=== PATIENT | male | born 1960 | race Caucasian/White ===

== ENCOUNTER 2018-10-01 11:11 | Outpatient (CLI) | payer OTHER, MEDICARE ==
[~2018-10-01 11:11] MED LIST: ALBU8.5H2; DIPH25TA62 PO; EPIN0.3P4 IM; FORM12CA; IBUP-1574; OMEP-84; OXYC40TA39; PRED20TA PO; PRED50TA PO; WEL75T PO
== END 2018-10-01 23:59 | disposition home or self-care (01) ==
LOC: 64 CT 11:11
PROVIDERS: ATTEND Family Medicine
DX: M47.812 Spondylosis without myelopathy or radiculopathy, cervical region (principal); M48.02 Spinal stenosis, cervical region; E04.2 Nontoxic multinodular goiter; R20.2 Paresthesia of skin; J44.9 Chronic obstructive pulmonary disease, unspecified; Z87.891 Personal history of nicotine dependence
CPT/HCPCS: 72052; 72125; 72141

== ENCOUNTER 2019-01-09 08:33 | Outpatient (CLI) | payer OTHER, MEDICARE ==
[2019-01-09 10:01] LABS: CLARITY,URINE CLOUDY (Clear); COLOR,URINE YELLOW (Yellow); GLUCOSE, URINE NEGATIVE (Neg); KETONES,URINE 15 mg/dl (Neg); LEUKOCYTE ESTERASE ,URINE NEGATIVE (Neg); NITRITES, URINE NEGATIVE (Neg); OCCULT BLOOD,URINE NEGATIVE (Neg); PH,URINE 5.5 (4.8-8.0); PROTEIN,URINE TRACE mg/dl (Neg)
[2019-01-09 10:02] LABS: BASOPHILS # (AUTO) 0.1 X10'3 (0-0.2); BASOPHILS % (AUTO) 1.1 % (0-1); EOSINOPHILS # (AUTO) 0.1 X10'3 (0-0.9); EOSINOPHILS % (AUTO) 1.9 % (0-6); HEMATOCRIT 44.4 % (42.0-52.0); HEMOGLOBIN 15.3 g/dl (14.0-17.9); LYMPHOCYTES # (AUTO) 1.5 X10'3 (1.1-4.8); LYMPHOCYTES % (AUTO) 20.4 % (21-51); MEAN CORPUSCULAR HEMOGLOBIN 31.9 PG (27.0-31.0); MEAN CORPUSCULAR HGB CONC 34.6 g/dL (33.0-36.5); MEAN CORPUSCULAR VOLUME 92.3 FL (78-98); MEAN PLATELET VOLUME 7.7 FL (7.4-10.4); MONOCYTES # (AUTO) 0.8 X10'3 (0-0.9); MONOCYTES % (AUTO) 11.4 % (2-12); NEUTROPHILS # (AUTO) 4.7 X10'3 (1.8-7.7); NEUTROPHILS % (AUTO) 65.2 % (42-75); PLATELET COUNT 356 X10'3 (140-440); RED CELL DISTRIBUTION WIDTH 13.5 % (11.5-14.5); WHITE BLOOD COUNT 7.2 X10'3 (4.5-11.0)
[2019-01-09 10:05] LABS: UA COLLECTION TYPE VOIDED
[2019-01-09 10:12] LABS: HYALINE CASTS >30 /LPF (NEGATIVE)
[2019-01-09 10:13] LABS: BACTERIA,URINE 1+ /HPF (Neg); MUCUS STRANDS MODERATE /LPF (Neg); SQUAMOUS EPITHELIAL CELL,UR MANY /LPF (FEW); TRANSITIONAL EPI CELLS,URINE FEW /HPF
[2019-01-09 10:14] LABS: RBC,URINE 0-2 /HPF (0-2); WBC,URINE 0-4 /HPF (0-4)
[2019-01-09 10:22] LABS: ALANINE AMINOTRANSFERASE 74 U/L (12-78); ALBUMIN 4.4 G/DL (3.4-5.0); ALBUMIN/GLOBULIN RATIO 1.2 (1.1-1.5); ALKALINE PHOSPHATASE 69 IU/L (46-116); ANION GAP 8 (8-16); ASPARTATE AMINO TRANSFERASE 47 U/L (10-37); BILIRUBIN,TOTAL 0.7 MG/DL (0.1-1.0); BLOOD UREA NITROGEN 13 MG/DL (7-18); BUN/CREATININE RATIO 11.2 (5.4-32.0); CALCIUM 9.4 MG/DL (8.5-10.1); CHLORIDE 100 MMOL/L (99-107); CHOL/HDL RATIO 3.9 (0.00-4.99); CHOLESTEROL 251 MG/DL (0-200); CREATININE 1.16 MG/DL (0.60-1.10); GLUCOSE 89 MG/DL (70-104); HDL CHOLESTEROL 64 MG/DL (35-60); LDL CHOLESTEROL 155 MG/DL (50-100); POTASSIUM 4.5 MMOL/L (3.5-5.1); SODIUM 136 MMOL/L (135-145); TOTAL CARBON DIOXIDE 27.6 MMOL/L (24-32); TOTAL PROTEIN 8.2 G/DL (6.4-8.2); TRIGLYCERIDES 128 MG/DL (20-135); eGFR 65 ML/MIN
== END 2019-01-09 23:59 | disposition home or self-care (01) ==
LOC: LAB 08:33
DX: Z00.00 Encounter for general adult medical examination without abnormal findings (principal); M54.2 Cervicalgia; J44.9 Chronic obstructive pulmonary disease, unspecified; Z87.891 Personal history of nicotine dependence
CPT/HCPCS: 36415; 80053; 80061; 81001; 84402; 84403; 84439; 84443; 85025

== ENCOUNTER 2019-03-17 07:33 | Day surgery (SDC) | payer OTHER, MEDICARE ==
[~2019-03-17] VITALS: Ht 188 cm; Wt 106.8 kg
[2019-03-17 07:42] VITALS: BP 178/106
[2019-03-17] MEDS ORDERED: BUPR75TA12 PO (07:47)
[2019-03-17] MEDS ORDERED: OMEP20TA5 PO (07:52)
[2019-03-17] MEDS ORDERED: IBUP-1986 PO (07:52)
[2019-03-17] MEDS ORDERED: fentaNYL/PF 50MCG/1 ML 2ML syringe ONE (08:34)
[2019-03-17] MEDS ORDERED: MIDAZolam 5mg/5ml vial ONE (08:35)
[2019-03-17 09:46] VITALS: BP 156/77
[2019-03-17 09:56] VITALS: BP 148/89
[2019-03-17 10:06] VITALS: BP 147/66
[2019-03-17 10:16] VITALS: BP 153/86
== END 2019-03-17 10:27 | disposition home or self-care (01) ==
LOC: GI LAB 07:33
PROVIDERS: ATTEND Internal Medicine Gastroenterology
DX: Z12.11 Encounter for screening for malignant neoplasm of colon (principal); K63.5 Polyp of colon; K64.8 Other hemorrhoids
CPT/HCPCS: 45385; 99152; 99153; C1773; J2250; J3010; J7040; A4620

== ENCOUNTER 2019-05-20 08:42 | Emergency (ER) | payer OTHER, MEDICARE ==
[~2019-05-20] VITALS: Ht 188 cm; Wt 109.1 kg
[~2019-05-20 08:42] MED LIST changes: -ALBU8.5H2; +BUPR75TA12 PO; -DIPH25TA62 PO; -EPIN0.3P4 IM; -FORM12CA; +IBUP-1986 PO; +OMEP20TA5 PO; -OXYC40TA39; -PRED20TA PO; -PRED50TA PO
[2019-05-20] MEDS ORDERED: ondansetron/PF 4mg/2ml inj IV ONE (09:10)
[2019-05-20] MEDS ORDERED: morphine 4 MG/ML inj SYRINge IV ONE (09:10)
[2019-05-20 09:32] LABS: BASOPHILS # (AUTO) 0.1 X10'3 (0-0.2); BASOPHILS % (AUTO) 0.7 % (0-1); EOSINOPHILS # (AUTO) 0.4 X10'3 (0-0.9); EOSINOPHILS % (AUTO) 5.8 % (0-6); HEMATOCRIT 40.2 % (42.0-52.0); HEMOGLOBIN 13.7 g/dl (14.0-17.9); LYMPHOCYTES # (AUTO) 1.4 X10'3 (1.1-4.8); LYMPHOCYTES % (AUTO) 20.2 % (21-51); MEAN CORPUSCULAR HEMOGLOBIN 32.1 PG (27.0-31.0); MEAN CORPUSCULAR HGB CONC 34.1 g/dL (33.0-36.5); MEAN CORPUSCULAR VOLUME 94.1 FL (78-98); MEAN PLATELET VOLUME 7.8 FL (7.4-10.4); MONOCYTES # (AUTO) 0.9 X10'3 (0-0.9); MONOCYTES % (AUTO) 12.5 % (2-12); NEUTROPHILS # (AUTO) 4.2 X10'3 (1.8-7.7); NEUTROPHILS % (AUTO) 60.8 % (42-75); PLATELET COUNT 299 X10'3 (140-440); RED BLOOD COUNT 4.27 X10'6 (4.70-6.10); RED CELL DISTRIBUTION WIDTH 13.5 % (11.5-14.5)
[2019-05-20 09:46] LABS: ALANINE AMINOTRANSFERASE 66 U/L (12-78); ALBUMIN/GLOBULIN RATIO 1.1 (1.1-1.5); ALKALINE PHOSPHATASE 65 IU/L (46-116); ANION GAP 12 (8-16); ASPARTATE AMINO TRANSFERASE 37 U/L (10-37); BILIRUBIN,TOTAL 0.3 MG/DL (0.1-1.0); BLOOD UREA NITROGEN 14 MG/DL (7-18); BUN/CREATININE RATIO 14.1 (5.4-32.0); CHLORIDE 101 MMOL/L (99-107); CREATININE 0.99 MG/DL (0.60-1.10); GLUCOSE 114 MG/DL (70-104); LIPASE 143 U/L (73-393); POTASSIUM 4.4 MMOL/L (3.5-5.1); SODIUM 140 MMOL/L (135-145); TOTAL CARBON DIOXIDE 27.5 MMOL/L (24-32); TOTAL PROTEIN 7.6 G/DL (6.4-8.2); eGFR 78 ML/MIN
[2019-05-20] MEDS ORDERED: ketorolac trometh. 30mg/ml inj. IV ONE (10:40)
[2019-05-20 10:47] LABS: CLARITY,URINE CLEAR (Clear); COLOR,URINE YELLOW (Yellow); GLUCOSE, URINE NEGATIVE (Neg); KETONES,URINE NEGATIVE (Neg); LEUKOCYTE ESTERASE ,URINE NEGATIVE (Neg); NITRITES, URINE NEGATIVE (Neg); OCCULT BLOOD,URINE NEGATIVE (Neg); PROTEIN,URINE NEGATIVE (Neg); UA COLLECTION TYPE CLN CATCH MIDSTREAM; UROBILINOGEN,URINE 0.2 E.U/dL (0.2-1.0)
[2019-05-20] MEDS ORDERED: diazepam inj 5 MG/ML inj. IV ONE (11:30)
[2019-05-20] MEDS ORDERED: IBUP-1984 PO (11:55)
[2019-05-20] MEDS ORDERED: CYCL-1 PO (11:55)
[2019-05-20] MEDS ORDERED: CARI250T PO (12:31)
[2019-05-20 12:38] VITALS: BP 144/79
== END 2019-05-20 12:39 | disposition home or self-care (01) ==
LOC: ER 08:42
DX: R10.9 Unspecified abdominal pain (principal); I10 Essential (primary) hypertension; R14.0 Abdominal distension (gaseous); J44.9 Chronic obstructive pulmonary disease, unspecified; Z98.890 Other specified postprocedural states; Z79.899 Other long term (current) drug therapy
CPT/HCPCS: 36415; 71046; 74176; 80053; 81003; 83690; 84484; 85025; 85610; 93005; 96374; 96375; 99284; J1885; J2270; J2405; J3360

== ENCOUNTER 2019-06-03 10:31 | Outpatient (CLI) | payer OTHER, MEDICARE ==
[~2019-06-03 10:31] MED LIST changes: +CARI250T PO; +IBUP-1984 PO
== END 2019-06-03 23:59 | disposition home or self-care (01) ==
LOC: 64 CT 10:31
PROVIDERS: ATTEND Family Medicine
DX: R91.8 Other nonspecific abnormal finding of lung field (principal); K76.0 Fatty (change of) liver, not elsewhere classified; J44.9 Chronic obstructive pulmonary disease, unspecified; I10 Essential (primary) hypertension; Z87.891 Personal history of nicotine dependence
CPT/HCPCS: 71250

== ENCOUNTER 2019-08-29 08:01 | Outpatient (CLI) | payer MEDICARE, OTHER ==
[~2019-08-29 08:01] MED LIST changes: -CARI250T PO; -IBUP-1984 PO
== END 2019-08-29 23:59 | disposition home or self-care (01) ==
LOC: RAD 08:01
PROVIDERS: ATTEND Family Medicine
DX: J34.89 Other specified disorders of nose and nasal sinuses (principal)
CPT/HCPCS: 78306; A9503

== ENCOUNTER 2021-05-11 08:49 | Outpatient (CLI) | payer BC, OTHER ==
[2021-05-11 09:12] LABS: BASOPHILS % (AUTO) 0.7 % (0-1); EOSINOPHILS # (AUTO) 0.2 X10'3 (0-0.9); EOSINOPHILS % (AUTO) 3.1 % (0-6); HEMATOCRIT 43.6 % (42.0-52.0); HEMOGLOBIN 14.7 g/dl (14.0-17.9); LYMPHOCYTES # (AUTO) 1.3 X10'3 (1.1-4.8); LYMPHOCYTES % (AUTO) 20.3 % (21-51); MEAN CORPUSCULAR HEMOGLOBIN 32.1 PG (27.0-31.0); MEAN CORPUSCULAR HGB CONC 33.7 g/dL (33.0-36.5); MEAN CORPUSCULAR VOLUME 95.1 FL (78-98); MONOCYTES # (AUTO) 0.9 X10'3 (0-0.9); MONOCYTES % (AUTO) 13.8 % (2-12); NEUTROPHILS # (AUTO) 3.9 X10'3 (1.8-7.7); NEUTROPHILS % (AUTO) 62.1 % (42-75); PLATELET COUNT 335 X10'3 (140-440); RED BLOOD COUNT 4.58 X10'6 (4.70-6.10); RED CELL DISTRIBUTION WIDTH 13.3 % (11.5-14.5); WHITE BLOOD COUNT 6.2 X10'3 (4.5-11.0)
[2021-05-11 09:31] LABS: COLOR,URINE YELLOW (Yellow); UA COLLECTION TYPE CLN CATCH MIDSTREAM
[2021-05-11 09:32] LABS: CLARITY,URINE SLIGHTLY CLOUDY (Clear); GLUCOSE, URINE NEGATIVE (Neg); KETONES,URINE NEGATIVE (Neg); LEUKOCYTE ESTERASE ,URINE NEGATIVE (Neg); NITRITES, URINE NEGATIVE (Neg); OCCULT BLOOD,URINE NEGATIVE (Neg); PROTEIN,URINE NEGATIVE (Neg); UROBILINOGEN,URINE 0.2 E.U/dL (0.2-1.0)
[2021-05-11 09:33] LABS: MUCUS STRANDS FEW /LPF (Neg)
[2021-05-11 09:34] LABS: BACTERIA,URINE NONE SEEN /HPF (Neg); SQUAMOUS EPITHELIAL CELL,UR FEW /LPF (FEW); WBC,URINE 0-4 /HPF (0-4)
[2021-05-11 09:43] LABS: ALANINE AMINOTRANSFERASE 77 U/L (12-78); ALBUMIN/GLOBULIN RATIO 1.1 (1.1-1.5); ALKALINE PHOSPHATASE 62 IU/L (46-116); ANION GAP 10 (8-16); ASPARTATE AMINO TRANSFERASE 38 U/L (10-37); BILIRUBIN,TOTAL 0.7 MG/DL (0.1-1.0); BLOOD UREA NITROGEN 11 MG/DL (7-18); BUN/CREATININE RATIO 10.8 (5.4-32.0); CALCIUM 9.1 MG/DL (8.5-10.1); CHLORIDE 103 MMOL/L (99-107); CHOL/HDL RATIO 3.9 (0.00-4.99); CHOLESTEROL 264 MG/DL (0-200); CREATININE 1.02 MG/DL (0.60-1.10); GLUCOSE 109 MG/DL (70-104); HDL CHOLESTEROL 67 MG/DL (35-60); LDL CHOLESTEROL 154 MG/DL (50-100); POTASSIUM 4.4 MMOL/L (3.5-5.1); SODIUM 141 MMOL/L (135-145); TOTAL CARBON DIOXIDE 28.3 MMOL/L (24-32); TOTAL PROTEIN 7.6 G/DL (6.4-8.2); TRIGLYCERIDES 108 MG/DL (20-135); eGFR 75 ML/MIN
== END 2021-05-11 23:59 | disposition home or self-care (01) ==
LOC: LAB 08:49
PROVIDERS: ATTEND Family Medicine
DX: Z00.01 Encounter for general adult medical examination with abnormal findings (principal)
CPT/HCPCS: 36415; 80053; 80061; 81001; 84439; 84443; 85025

== ENCOUNTER 2021-11-11 14:02 | Outpatient (CLI) | payer BC ==
[~2021-11-11 14:02] MED LIST changes: +BUPR-297 PO; -BUPR75TA12 PO; +CARV-50 PO
[2021-11-11 15:08] LABS: CHOL/HDL RATIO 3.6 (0.00-4.99); CHOLESTEROL 255 MG/DL (0-200); HDL CHOLESTEROL 71 MG/DL (35-60); LDL CHOLESTEROL 155 MG/DL (50-100); TRIGLYCERIDES 73 MG/DL (20-135)
== END 2021-11-11 23:59 | disposition home or self-care (01) ==
LOC: LAB 14:02
PROVIDERS: ATTEND Family Medicine
DX: I10 Essential (primary) hypertension (principal); E78.5 Hyperlipidemia, unspecified; R73.03 Prediabetes; M54.9 Dorsalgia, unspecified
CPT/HCPCS: 36415; 80061; 83036

== ENCOUNTER 2022-04-19 09:06 | Outpatient (CLI) | payer BC ==
[~2022-04-19 09:06] MED LIST changes: +OMEP20TA43 PO; -OMEP20TA5 PO
[2022-04-19 10:04] LABS: CHOL/HDL RATIO 2.9 (0.00-4.99); CHOLESTEROL 203 MG/DL (0-200); HDL CHOLESTEROL 71 MG/DL (35-60); LDL CHOLESTEROL 99 MG/DL (50-100); TRIGLYCERIDES 111 MG/DL (20-135)
== END 2022-04-19 23:59 | disposition home or self-care (01) ==
LOC: LAB 09:06
PROVIDERS: ATTEND Family Medicine
DX: E78.5 Hyperlipidemia, unspecified (principal)
CPT/HCPCS: 36415; 80061; 84443

== ENCOUNTER 2022-06-28 05:47 | Observation (INO) | payer BC ==
[2022-06-21 14:56] LABS: BASOPHILS # (AUTO) 0.1 X10'3 (0-0.2); BASOPHILS % (AUTO) 0.6 % (0-1); EOSINOPHILS # (AUTO) 0.3 X10'3 (0-0.9); EOSINOPHILS % (AUTO) 2.9 % (0-6); LYMPHOCYTES # (AUTO) 1.6 X10'3 (1.1-4.8); MEAN CORPUSCULAR HEMOGLOBIN 31.6 PG (27.0-31.0); MEAN CORPUSCULAR HGB CONC 33.7 g/dL (33.0-36.5); MEAN CORPUSCULAR VOLUME 93.7 FL (78-98); MEAN PLATELET VOLUME 7.5 FL (7.4-10.4); MONOCYTES # (AUTO) 1.1 X10'3 (0-0.9); MONOCYTES % (AUTO) 11.2 % (2-12); NEUTROPHILS # (AUTO) 6.7 X10'3 (1.8-7.7); NEUTROPHILS % (AUTO) 69.3 % (42-75); PRE OP HEMATOCRIT 39.9 % (42.0-52.0); PRE OP HEMOGLOBIN 13.4 g/dL (14.0-17.9); PRE OP PLATELET COUNT 324 X10'3 (140-440); RED BLOOD COUNT 4.26 X10'6 (4.70-6.10)
[2022-06-21 15:10] LABS: ALBUMIN/GLOBULIN RATIO 1.1 (1.1-1.5); ALKALINE PHOSPHATASE 61 IU/L (46-116); BLOOD UREA NITROGEN 20 MG/DL (7-18); BUN/CREATININE RATIO 15.2 (5.4-32.0); CALCIUM 9.4 MG/DL (8.5-10.1); CHLORIDE 102 MMOL/L (99-107); CREATININE 1.32 MG/DL (0.60-1.10); PRE OP ALT 42 U/L (30-65); PRE OP ANION GAP 9 (8-16); PRE OP AST 28 U/L (10-37); PRE OP BILIRUB, TOTAL 0.4 MG/DL (0.0-1.0); PRE OP GLUCOSE 113 MG/DL (70-104); PRE OP POTASSIUM 4.1 MMOL/L (3.4-5.1); PRE OP SODIUM 138 MMOL/L (135-145); TOTAL CARBON DIOXIDE 26.6 MMOL/L (24-32); TOTAL PROTEIN 7.6 G/DL (6.4-8.2); eGFR 55 ML/MIN
[~2022-06-28] VITALS: Ht 188 cm; Wt 108.9 kg
[2022-06-28] VITALS (15 sets, daily range): BP systolic 134–168; BP diastolic 72–104
[~2022-06-28 05:47] MED LIST changes: +BUPR-230 PO; -BUPR-297 PO; +CELE-85 PO; +DOCUMENT DATE & TIME OF BETA-BLOCKER PO ONE; -IBUP-1574; -IBUP-1986 PO; +LOSA100T57 PO; -OMEP-84; +ROSU10TA28 PO; -WEL75T PO; +ceFAZolin inj. 2,000 MG in dextrose 5%-water 100 ML IV ONE; +famotidine 20mg tablet PO ONE; +ringers solution, lacted 1,000 ML IV SCH; +tranexamic acid inj. 1,000 MG in normal saline IV soln 100ML IV ONE; +vancomycin 1,500 MG in NS 300ml IV soln IV ONE
[2022-06-28] MEDS ORDERED: epiNEPHrine 1 mg/ml inj ONE (06:50)
[2022-06-28] MEDS ORDERED: ketorolac trometh. 30mg/ml inj. ONE (06:50)
[2022-06-28] MEDS ORDERED: ROPIVAcaine 0.5% (5mg/ml) 30ml vial ONE ×2 (06:51→07:15)
[2022-06-28] MEDS ORDERED: morphine 10mg/ml inj. ONE (06:51)
[2022-06-28] MEDS ORDERED: vancomycin 1,000mg inj ONE (07:18)
[2022-06-28] MEDS ORDERED: FENTANYL CITRATE/PF 50 MCG/1 ML VIAL ONE ×2 (07:32→08:08)
[2022-06-28] MEDS ORDERED: MIDAZolam 1mg/ml 10ml vial ONE (07:32)
[2022-06-28] MEDS ORDERED: propofol inj 20 ML IV ONE ×2 (08:08→08:09)
[2022-06-28] MEDS ORDERED: morphine 4 MG/ML inj SYRINge IV PRN (09:00)
[2022-06-28] MEDS ORDERED: ringers solution, lacted 1,000 ML IV SCH (09:00)
[2022-06-28] MEDS ORDERED: ROPIVAcaine 0.2% (10 MG/5 ML) BOLUS INJECTION ADDCANAL PRN (09:00)
[2022-06-28] MEDS ORDERED: ondansetron/PF 4mg/2ml inj IV PRN ×2 (09:00→10:45)
[2022-06-28] MEDS ORDERED: meperidine/PF 25mg/ml syringe IV PRN ×3 (09:00)
[2022-06-28] MEDS ORDERED: proCHLORperazine 10 MG/2 ml inj IV PRN (09:00)
[2022-06-28] MEDS ORDERED: morphine 2 MG/ML inj. syringe IV PRN (09:00)
[2022-06-28] MEDS ORDERED: ROPIVAcaine 0.2%/PF PUMP/bolus 545 ML ADDCANAL SCH (09:29)
[2022-06-28] MEDS ORDERED: MIDAZolam 1 MG/ML 5ML VIAL ONE (09:30)
[2022-06-28] MEDS ORDERED: HYDROmorphone inj. 0.5 MG/0.5 ML DISP.SYRIN IV PRN (10:45)
[2022-06-28] MEDS ORDERED: magnesium hydroxide 30ml (MOM) UD suspension PO PRN (10:45)
[2022-06-28] MEDS ORDERED: HYDROmorphone 1 mg/ml syringe IV PRN (10:45)
[2022-06-28] MEDS ORDERED: acetaminophen 325mg tablet PO PRN (10:45)
[2022-06-28] MEDS ORDERED: bisacodyl 10mg suppository rectal RC PRN (10:45)
[2022-06-28] MEDS ORDERED: oxyCODONE IR 5mg (immed. release) tablet PO PRN ×2 (10:45)
[2022-06-28] MEDS ORDERED: diphenhydrAMINE 25mg capsule PO PRN ×2 (10:45)
[2022-06-28] MEDS ORDERED: naloxone 0.4 mg/ml inj IV PRN (10:45)
--- NOTE | 2022-06-28 10:50 | NUR ---
Received from OR via BED, accompanied by Anesthesiologist and report given by Anesthesiologist. PATIENT WAKING UP, NO S/S OF PAIN, V/S WNL, SCD ON, 20G TO LUE, drsg to RIGHT KNEE CDI with IMMOBILIZER CDI, TO BE SET ON Q BALL AT 8ML/HR WHEN AT IS READY.
[2022-06-28] MEDS ORDERED: ROPIVAcaine 0.2%/PF PUMP 545 ML ADDCANAL SCH (11:30)
[2022-06-28] MEDS ORDERED: gabapentin 300mg capsule PO SCH (13:00)
--- NOTE | 2022-06-28 13:02 | NUR ---
PT HERE TO WORK WITH PATIENT
--- NOTE | 2022-06-28 13:30 | NUR ---
PATIENT A&OX4, PAIN / , V/S WNL, SCD OFF, 20G TO LUE D/C, drsg to RIGHT KNEE CDI with IMMOBILIZER CDI, T ON Q BALL AT 8ML/HR. . I HAVE REVIEWED D/C INSTRUCTIONS AND ON Q MANAGMENT WITH PATIENT and they have verbalized understanding AND PATIENT HAS PASSED PT TEST , CSM INTACT, patient d/c home with all belongings and family gave transport home.
[2022-06-28] MEDS ORDERED: acetaminophen 325mg tablet PO SCH (14:00)
[2022-06-28] MEDS ORDERED: tranexamic acid inj. 1,100 MG in normal saline 100ml IV soln 89 ML IV ONE (14:00)
[2022-06-28] MEDS ORDERED: sennosides 8.6mg tablet PO SCH (21:00)
[2022-06-29] MEDS ORDERED: enoxaparin 40mg/0.4ml syringe SQ SCH (08:00)
[2022-06-29] MEDS ORDERED: cephalexin 500mg capsule PO SCH (16:00)
[2022-06-29] MEDS ORDERED: celeCOXIB 100mg capsule PO SCH (20:00)
[2022-06-30] MEDS ORDERED: acetaminophen 325mg tablet PO PRN (10:45)
== END 2022-06-28 13:45 | disposition home or self-care (01) ==
LOC: INTOOBSV 05:47 → PAS IN 05:47 → EDSTATUS 07:30
PROVIDERS: ADMIT Orthopaedic Surgery; ATTEND Orthopaedic Surgery
DX: M17.11 Unilateral primary osteoarthritis, right knee (principal); M10.9 Gout, unspecified; I10 Essential (primary) hypertension; E78.00 Pure hypercholesterolemia, unspecified; J45.909 Unspecified asthma, uncomplicated; K21.9 Gastro-esophageal reflux disease without esophagitis; Z79.899 Other long term (current) drug therapy
CPT/HCPCS: 27447; 36415; 73560; 80053; 82948; 85025; 87081; 93005; 96365; 97110; 97116; 97161; C1776; G0378; J0171; J0690; J1885; J2250; J2274; J2704; J2795; J3010; J3370; J3490; J7040; J7060; J7120; A4215; A6253; A6258; A6446; A6449; A7000; C9250

== ENCOUNTER 2023-01-02 09:41 | Outpatient (CLI) | payer BC ==
[~2023-01-02 09:41] MED LIST changes: -DOCUMENT DATE & TIME OF BETA-BLOCKER PO ONE; -LOSA100T57 PO; +LOSA100T58 PO; -ceFAZolin inj. 2,000 MG in dextrose 5%-water 100 ML IV ONE; -famotidine 20mg tablet PO ONE; -ringers solution, lacted 1,000 ML IV SCH; -tranexamic acid inj. 1,000 MG in normal saline IV soln 100ML IV ONE; -vancomycin 1,500 MG in NS 300ml IV soln IV ONE
[2023-01-02 11:55] LABS: BASOPHILS # (AUTO) 0.1 X10'3 (0-0.2); BASOPHILS % (AUTO) 0.9 % (0-1); EOSINOPHILS # (AUTO) 0.8 X10'3 (0-0.9); EOSINOPHILS % (AUTO) 9.2 % (0-6); HEMATOCRIT 37.3 % (42.0-52.0); HEMOGLOBIN 12.6 g/dl (14.0-17.9); LYMPHOCYTES % (AUTO) 11.1 % (21-51); MEAN CORPUSCULAR HEMOGLOBIN 30.8 PG (27.0-31.0); MEAN CORPUSCULAR HGB CONC 33.8 g/dL (33.0-36.5); MEAN CORPUSCULAR VOLUME 91.1 FL (78-98); MEAN PLATELET VOLUME 6.7 FL (7.4-10.4); MONOCYTES % (AUTO) 10.3 % (2-12); NEUTROPHILS # (AUTO) 6.3 X10'3 (1.8-7.7); NEUTROPHILS % (AUTO) 68.5 % (42-75); PLATELET COUNT 456 X10'3 (140-440); RED CELL DISTRIBUTION WIDTH 14.3 % (11.5-14.5); WHITE BLOOD COUNT 9.2 X10'3 (4.5-11.0)
[2023-01-02 12:09] LABS: ALANINE AMINOTRANSFERASE 23 U/L (12-78); ALBUMIN 3.6 G/DL (3.4-5.0); ALBUMIN/GLOBULIN RATIO 0.9 (1.1-1.5); ALKALINE PHOSPHATASE 83 IU/L (46-116); ANION GAP 10 (8-16); ASPARTATE AMINO TRANSFERASE 23 U/L (10-37); BILIRUBIN,TOTAL 0.6 MG/DL (0.1-1.0); BLOOD UREA NITROGEN 14 MG/DL (7-18); BUN/CREATININE RATIO 14.1 (10.0-20.0); CALCIUM 9.3 MG/DL (8.5-10.1); CHLORIDE 101 MMOL/L (99-107); CREATININE 0.99 MG/DL (0.60-1.10); GLUCOSE 91 MG/DL (70-104); POTASSIUM 4.1 MMOL/L (3.5-5.1); SODIUM 139 MMOL/L (135-145); TOTAL CARBON DIOXIDE 27.6 MMOL/L (24-32); TOTAL PROTEIN 7.5 G/DL (6.4-8.2); eGFR 77 ML/MIN
== END 2023-01-02 23:59 | disposition home or self-care (01) ==
LOC: RAD 09:41
PROVIDERS: ATTEND Family Medicine
DX: J90 Pleural effusion, not elsewhere classified (principal); R05.9 Cough, unspecified; R53.83 Other fatigue; D64.9 Anemia, unspecified; J98.4 Other disorders of lung
CPT/HCPCS: 36415; 71046; 71250; 80053; 85025

== ENCOUNTER 2023-01-03 08:27 | Outpatient (CLI) | payer BC ==
[2023-01-03 09:28] LABS: BASOPHILS # (AUTO) 0.1 X10'3 (0-0.2); BASOPHILS % (AUTO) 0.9 % (0-1); EOSINOPHILS # (AUTO) 0.9 X10'3 (0-0.9); EOSINOPHILS % (AUTO) 8.6 % (0-6); HEMATOCRIT 37.5 % (42.0-52.0); HEMOGLOBIN 12.8 g/dl (14.0-17.9); LYMPHOCYTES # (AUTO) 0.9 X10'3 (1.1-4.8); LYMPHOCYTES % (AUTO) 8.9 % (21-51); MEAN CORPUSCULAR HGB CONC 34.1 g/dL (33.0-36.5); MEAN CORPUSCULAR VOLUME 90.9 FL (78-98); MEAN PLATELET VOLUME 7.1 FL (7.4-10.4); MONOCYTES # (AUTO) 1.2 X10'3 (0-0.9); MONOCYTES % (AUTO) 11.1 % (2-12); NEUTROPHILS # (AUTO) 7.4 X10'3 (1.8-7.7); NEUTROPHILS % (AUTO) 70.5 % (42-75); PLATELET COUNT 455 X10'3 (140-440); RED BLOOD COUNT 4.12 X10'6 (4.70-6.10); RED CELL DISTRIBUTION WIDTH 14.4 % (11.5-14.5); WHITE BLOOD COUNT 10.4 X10'3 (4.5-11.0)
[2023-01-03 09:32] LABS: D-DIMER 2.94 MG/L FEU (0-0.50)
[2023-01-03 09:47] LABS: ALANINE AMINOTRANSFERASE 23 U/L (12-78); ALBUMIN 3.4 G/DL (3.4-5.0); ALBUMIN/GLOBULIN RATIO 0.9 (1.1-1.5); ALKALINE PHOSPHATASE 79 IU/L (46-116); ANION GAP 8 (8-16); ASPARTATE AMINO TRANSFERASE 21 U/L (10-37); BILIRUBIN,TOTAL 0.5 MG/DL (0.1-1.0); BLOOD UREA NITROGEN 11 MG/DL (7-18); BUN/CREATININE RATIO 11.3 (10.0-20.0); CHLORIDE 102 MMOL/L (99-107); CHOL/HDL RATIO 2.2 (0.00-4.99); CHOLESTEROL 132 MG/DL (0-200); CREATININE 0.97 MG/DL (0.60-1.10); GLUCOSE 86 MG/DL (70-104); HDL CHOLESTEROL 60 MG/DL (35-60); LDL CHOLESTEROL 51 MG/DL (50-100); POTASSIUM 3.9 MMOL/L (3.5-5.1); SODIUM 138 MMOL/L (135-145); TOTAL CARBON DIOXIDE 27.6 MMOL/L (24-32); TOTAL PROTEIN 7.3 G/DL (6.4-8.2); TRIGLYCERIDES 72 MG/DL (20-135); eGFR 79 ML/MIN
[2023-01-05] MEDS ORDERED: AZIT-83 PO (12:12)
== END 2023-01-03 23:59 | disposition home or self-care (01) ==
LOC: LAB 08:27
PROVIDERS: ATTEND Family Medicine
DX: D64.9 Anemia, unspecified (principal); I10 Essential (primary) hypertension; E78.5 Hyperlipidemia, unspecified; R05.9 Cough, unspecified; R53.83 Other fatigue
CPT/HCPCS: 36415; 80053; 80061; 84439; 84443; 85025; 85379

== ENCOUNTER 2023-01-05 11:03 | Day surgery (SDC) | payer BC ==
[~2023-01-05] VITALS: Ht 188 cm; Wt 109.0 kg
[2023-01-05] VITALS (19 sets, daily range): BP systolic 96–136; BP diastolic 60–76
[2023-01-05] MEDS ORDERED: normal saline 1000ml 1,000 ML IV PRN (11:30)
[2023-01-05] MEDS ORDERED: LIDOcaine 1% 30ml preserv. free vial ONE (12:05)
[2023-01-05 12:07] LABS: BASOPHILS # (AUTO) 0.1 X10'3 (0-0.2); BASOPHILS % (AUTO) 0.3 % (0-1); EOSINOPHILS # (AUTO) 0.2 X10'3 (0-0.9); HEMATOCRIT 37.7 % (42.0-52.0); HEMOGLOBIN 12.6 g/dl (14.0-17.9); LYMPHOCYTES # (AUTO) 0.7 X10'3 (1.1-4.8); LYMPHOCYTES % (AUTO) 2.8 % (21-51); MEAN CORPUSCULAR HEMOGLOBIN 30.8 PG (27.0-31.0); MEAN CORPUSCULAR HGB CONC 33.6 g/dL (33.0-36.5); MEAN CORPUSCULAR VOLUME 91.7 FL (78-98); MEAN PLATELET VOLUME 7.2 FL (7.4-10.4); MONOCYTES # (AUTO) 2.9 X10'3 (0-0.9); MONOCYTES % (AUTO) 11.9 % (2-12); NEUTROPHILS # (AUTO) 20.6 X10'3 (1.8-7.7); PLATELET COUNT 434 X10'3 (140-440); RED BLOOD COUNT 4.11 X10'6 (4.70-6.10); RED CELL DISTRIBUTION WIDTH 14.5 % (11.5-14.5); WHITE BLOOD COUNT 24.5 X10'3 (4.5-11.0)
[2023-01-05] MEDS ORDERED: fentaNYL/PF 50MCG/1 ML 2ML syringe ONE (12:07)
[2023-01-05] MEDS ORDERED: midazolam 1 mg/ML 2ml injection ONE (12:07)
[2023-01-05] MEDS ORDERED: IBUP-1986 PO (12:12)
[2023-01-05] MEDS ORDERED: FLUT1BLS4 INH (12:12)
[2023-01-05] MEDS ORDERED: PER5325T PO (12:12)
[2023-01-05] MEDS ORDERED: AZIT-164 PO (12:12)
[2023-01-05] MEDS ORDERED: AMLO5TAB16 PO (12:12)
[2023-01-05] MEDS ORDERED: gelatin sponge, absorbable (Gelfoam 12-7MM) sponge TP ONE (12:13)
[2023-01-05] MEDS ORDERED: HYDROcodone/acetaminophen 5mg/325mg tablet PO PRN (13:25)
== END 2023-01-05 16:30 | disposition home or self-care (01) ==
LOC: SSTAY O 11:03
PROVIDERS: ATTEND Radiology Vascular & Interventional Radiology
DX: R91.8 Other nonspecific abnormal finding of lung field (principal); J90 Pleural effusion, not elsewhere classified; Z88.8 Allergy status to other drugs, medicaments and biological substances; Z79.899 Other long term (current) drug therapy; Z87.891 Personal history of nicotine dependence
CPT/HCPCS: 32408; 32555; 71045; 85025; 87070; 99152; 99153; J2250; J3010; J3490; J7030; 77012; A4615

== ENCOUNTER 2023-01-12 19:43 | Inpatient (IN) | payer BC ==
[~2023-01-12] VITALS: Ht 188 cm; Wt 102.3 kg
[~2023-01-12 19:43] MED LIST changes: +AMLO5TAB16 PO; +AZIT-164 PO; -CELE-85 PO; +FLUT1BLS4 INH; +IBUP-1986 PO; +PER5325T PO; +PERFLUTREN PROTEIN-A MICROSPHR (Optison) 0.22 MG/ML 3ML VIAL IV ONE
[2023-01-12 20:33] LABS: ALANINE AMINOTRANSFERASE 149 U/L (12-78); ALBUMIN/GLOBULIN RATIO 0.4 (1.1-1.5); ALKALINE PHOSPHATASE 149 IU/L (46-116); ANION GAP 14 (8-16); ASPARTATE AMINO TRANSFERASE 162 U/L (10-37); BILIRUBIN,TOTAL 0.7 MG/DL (0.1-1.0); BLOOD UREA NITROGEN 31 MG/DL (7-18); BUN/CREATININE RATIO 17.2 (10.0-20.0); CALCIUM 9.5 MG/DL (8.5-10.1); CHLORIDE 95 MMOL/L (99-107); GLUCOSE 117 MG/DL (70-104); SODIUM 133 MMOL/L (135-145); TOTAL PROTEIN 7.1 G/DL (6.4-8.2); eGFR 39 ML/MIN
[2023-01-12 20:38] LABS: EOSINOPHILS # (AUTO) 0.1 X10'3 (0-0.9); MEAN CORPUSCULAR HEMOGLOBIN 30.4 PG (27.0-31.0); MEAN CORPUSCULAR HGB CONC 33.8 g/dL (33.0-36.5); MEAN PLATELET VOLUME 7.3 FL (7.4-10.4)
[2023-01-12 20:40] LABS: BASOPHILS # (AUTO) 0.2 X10'3 (0-0.2); BASOPHILS % (AUTO) 0.7 % (0-1); EOSINOPHILS % (AUTO) 0.4 % (0-6); HEMATOCRIT 32.4 % (42.0-52.0); HEMOGLOBIN 10.9 g/dl (14.0-17.9); LYMPHOCYTES # (AUTO) 0.7 X10'3 (1.1-4.8); LYMPHOCYTES % (AUTO) 2.3 % (21-51); MEAN CORPUSCULAR VOLUME 89.7 FL (78-98); MONOCYTES # (AUTO) 3.2 X10'3 (0-0.9); MONOCYTES % (AUTO) 11.2 % (2-12); NEUTROPHILS # (AUTO) 24.5 X10'3 (1.8-7.7); NEUTROPHILS % (AUTO) 85.4 % (42-75); PLATELET COUNT 879 X10'3 (140-440); RED BLOOD COUNT 3.61 X10'6 (4.70-6.10); RED CELL DISTRIBUTION WIDTH 14.8 % (11.5-14.5)
[2023-01-12] MEDS ORDERED: LIDOcaine 1% W/epiNEPHrine 1:100,000 20ml vial SQ ONE ×2 (20:40→21:15)
[2023-01-12 20:45] LABS: WHITE BLOOD COUNT 28.7 X10'3 (4.5-11.0)
--- NOTE | 2023-01-12 21:00 | NUR ---
dr soto at bedside for thoracentesis of left lung
--- NOTE | 2023-01-12 21:46 | NUR ---
procedure jared pt tolerated well 1600mls fluid removed from left lung and sample sent ot lab
[2023-01-12] MEDS ORDERED: doxycycline inj 100 MG in normal saline 100ml IV soln 100 ML IV ONE (21:50)
[2023-01-12] MEDS ORDERED: CefTRIAXone 2gm/D5W 50ml BAG 50 ML IV ONE (21:50)
[2023-01-12] MEDS ORDERED: normal saline 500ml IV soln 500 ML IV ONE (21:50)
[2023-01-12] MEDS ORDERED: normal saline 1000ML IV soln IV ONE (21:55)
[2023-01-12] MEDS ORDERED: vancomycin/NS 1 GM ADD-VANTAGE 250 ML IV ONE (22:20)
--- NOTE | 2023-01-12 22:46 | NUR ---
dr whitehead at bedside
--- NOTE | 2023-01-12 22:59 | NUR ---
[address] soto on wrong pt, dr soto notified
[2023-01-12] MEDS ORDERED: potassium Cl 40MEQ/1/2NS 520ml 520 ML IV PRN (23:10)
[2023-01-12] MEDS ORDERED: HYDROmorphone/PF 0.2 MG/ML SYRINGE IV PRN (23:10)
[2023-01-12] MEDS ORDERED: HYDROmorphone inj. 0.5 MG/0.5 ML DISP.SYRIN IV PRN (23:10)
[2023-01-12] MEDS ORDERED: mag hydrox/Alum hydrox/simeth 30ml oral suspension PO PRN (23:10)
[2023-01-12] MEDS ORDERED: magnesium 4gm in 100ml NS 100 ML IV PRN (23:10)
[2023-01-12] MEDS ORDERED: potassium Cl 20 mEq SR tablet PO PRN ×2 (23:10)
[2023-01-12] MEDS ORDERED: albuterol 2.5 MG/3 ML nebule NEB PRN (23:10)
[2023-01-12] MEDS ORDERED: ipratropium/albuterol 3ml nebule NEB PRN (23:10)
[2023-01-12] MEDS ORDERED: acetaminophen 325mg tablet PO PRN (23:10)
[2023-01-12] MEDS ORDERED: ondansetron/PF 4mg/2ml inj IV PRN (23:10)
[2023-01-12] MEDS: diatr meglu/diatrizoate 30ml oral sol.-(3 dose) bottle PO SCH (23:31)
[2023-01-12] MEDS ORDERED: ALBU90AE2 INH (23:39)
[2023-01-12] MEDS ORDERED: LEVO750T68 PO (23:39)
--- NOTE | 2023-01-12 23:43 | NUR ---
RT AT BEDSIDE FRO TREATMENT
[2023-01-12 23:48] LABS: AMYLASE,BODY FLUID 25 U/L; GLUCOSE,BODY FLUID 5 MG/DL; LDH,BODY FLUID 1215 U/L; TOTAL PROTEIN,BODY FLUID 4.6 G/DL
[2023-01-12 23:48] LABS: TOTAL CELLS COUNTED 100
[2023-01-12 23:49] LABS: BODY FLUID PH (NON-PLEURAL) 7.5
[2023-01-12 23:49] LABS: PLATELET ESTIMATE INCREASED
[2023-01-12 23:53] LABS: BFAPPEAR CLOUDY; BFCOLOR YELLOW
[2023-01-12 23:54] LABS: BFVOLUME 1100 ML
[2023-01-13 00:01] LABS: MONOCYTES,BODY FLUID 1 %; NEUTROPHILS,BODY FLUID 99 %
[2023-01-13 00:33] LABS: BASOPHILS # (AUTO) 0.1 X10'3 (0-0.2); BASOPHILS % (AUTO) 0.3 % (0-1); HEMOGLOBIN 9.9 g/dl (14.0-17.9); LYMPHOCYTES # (AUTO) 0.6 X10'3 (1.1-4.8); RED BLOOD COUNT 3.27 X10'6 (4.70-6.10)
[2023-01-13 00:34] LABS: EOSINOPHILS # (AUTO) 0.1 X10'3 (0-0.9); EOSINOPHILS % (AUTO) 0.3 % (0-6); HEMATOCRIT 29.6 % (42.0-52.0); LYMPHOCYTES % (AUTO) 2.5 % (21-51); MEAN CORPUSCULAR HEMOGLOBIN 30.4 PG (27.0-31.0); MEAN CORPUSCULAR HGB CONC 33.5 g/dL (33.0-36.5); MEAN CORPUSCULAR VOLUME 90.6 FL (78-98); MONOCYTES # (AUTO) 2.7 X10'3 (0-0.9); MONOCYTES % (AUTO) 11.1 % (2-12); NEUTROPHILS # (AUTO) 20.8 X10'3 (1.8-7.7); NEUTROPHILS % (AUTO) 85.8 % (42-75); PLATELET COUNT 764 X10'3 (140-440); RED CELL DISTRIBUTION WIDTH 15.1 % (11.5-14.5); WHITE BLOOD COUNT 24.2 X10'3 (4.5-11.0)
[2023-01-13 00:37] LABS: ALANINE AMINOTRANSFERASE 126 U/L (12-78); ALBUMIN 1.7 G/DL (3.4-5.0); ALBUMIN/GLOBULIN RATIO 0.4 (1.1-1.5); ALKALINE PHOSPHATASE 123 IU/L (46-116); ANION GAP 10 (8-16); ASPARTATE AMINO TRANSFERASE 115 U/L (10-37); BILIRUBIN,TOTAL 0.5 MG/DL (0.1-1.0); BLOOD UREA NITROGEN 32 MG/DL (7-18); BUN/CREATININE RATIO 17.2 (10.0-20.0); CALCIUM 8.6 MG/DL (8.5-10.1); CHLORIDE 99 MMOL/L (99-107); CREATININE 1.86 MG/DL (0.60-1.10); GLUCOSE 117 MG/DL (70-104); SODIUM 134 MMOL/L (135-145); TOTAL CARBON DIOXIDE 25.3 MMOL/L (24-32); TOTAL PROTEIN 6.1 G/DL (6.4-8.2); eGFR 37 ML/MIN
[2023-01-13 00:40] LABS: MAGNESIUM 1.5 MG/DL (1.5-2.4)
[2023-01-13 00:55] LABS: BF RBC COUNT 156 /CU MM; BF WBC COUNT 2144 /CU MM (0-1000)
[2023-01-13 01:01] VITALS: BP 134/62
[2023-01-13 01:17] LABS: TOTAL CELLS COUNTED 100
[2023-01-13 01:18] LABS: PLATELET ESTIMATE INCREASED
--- NOTE | 2023-01-13 06:07 | NUR ---
Problems reprioritized. Patient report given, questions answered & plan of care reviewed with JOSE D FINNEY.
[2023-01-13 06:25] LABS: % IRON SATURATION 19 % (11-46); IRON 20 UG/DL (53-167); TOTAL IRON BINDING CAPACITY 108 UG/DL (259-388)
[2023-01-13 06:30] VITALS: BP 112/51
[2023-01-13] MEDS: K and/or MAG REPLACEMENT MC SCH ×2 (08:00→20:00)
[2023-01-13] MEDS: diatr meglu/diatrizoate 30ml oral sol.-(3 dose) bottle PO SCH ×2 (08:08→11:06)
[2023-01-13] MEDS: doxycycline inj 100 MG in normal saline 100ml IV soln 100 ML IV SCH ×2 (08:08→20:48)
[2023-01-13] MEDS: pantoprazole 40mg Tablet.DR PO SCH (08:09)
[2023-01-13] MEDS: CefTRIAXone 2gm/D5W 50ml BAG 50 ML IV SCH (08:09)
[2023-01-13] MEDS: carVEDilol 12.5mg tablet PO SCH ×2 (08:10→20:50)
[2023-01-13] MEDS: heparin, porcine 5000 units/ml vial SQ SCH ×2 (08:10→20:51)
[2023-01-13] MEDS: buPROPion SR 150mg tablet PO SCH (08:10)
[2023-01-13] MEDS: docusate sod 100mg capsule PO SCH ×2 (08:10→20:00)
[2023-01-13] MEDS: budesonide 0.5mg/2ml UD nebule IH SCH ×2 (08:13→19:37)
[2023-01-13] MEDS: ipratropium/albuterol 3ml nebule NEB SCH ×3 (08:13→19:37)
[2023-01-13 10:10] VITALS: BP 108/64
[2023-01-13] MEDS ORDERED: furosemide 20 MG/2 ML vial IV ONE (11:30)
[2023-01-13 18:00] VITALS: BP 110/63
--- NOTE | 2023-01-13 18:23 | NUR ---
Problems reprioritized. Patient report given, questions answered & plan of care reviewed with Cori.
--- NOTE | 2023-01-13 18:54 | NUR ---
Patient in room ORTHO 4017. I have received report from JOSE D WIGGINS and had the opportunity to ask questions and assume patient care.
[2023-01-13] MEDS: losartan 50mg tablet PO SCH (20:50)
[2023-01-13] MEDS ORDERED: losartan 50mg tablet PO SCH (21:00)
[2023-01-13 22:00] VITALS: BP 128/69
[2023-01-13] MEDS ORDERED: vancomycin/NS 1 GM ADD-VANTAGE 250 ML X 1 DOSE IV SCH (23:00)
[2023-01-14 06:11] LABS: BASOPHILS # (AUTO) 0.1 X10'3 (0-0.2); EOSINOPHILS # (AUTO) 0.2 X10'3 (0-0.9); MONOCYTES # (AUTO) 1.7 X10'3 (0-0.9); WHITE BLOOD COUNT 13.8 X10'3 (4.5-11.0)
[2023-01-14 06:12] LABS: ALANINE AMINOTRANSFERASE 212 U/L (12-78); ALBUMIN 1.7 G/DL (3.4-5.0); ALBUMIN/GLOBULIN RATIO 0.4 (1.1-1.5); ALKALINE PHOSPHATASE 113 IU/L (46-116); ANION GAP 7 (8-16); ASPARTATE AMINO TRANSFERASE 204 U/L (10-37); BASOPHILS % (AUTO) 0.7 % (0-1); BILIRUBIN,TOTAL 0.4 MG/DL (0.1-1.0); BLOOD UREA NITROGEN 23 MG/DL (7-18); BUN/CREATININE RATIO 18.5 (10.0-20.0); CALCIUM 9.1 MG/DL (8.5-10.1); CHLORIDE 104 MMOL/L (99-107); CREATININE 1.24 MG/DL (0.60-1.10); EOSINOPHILS % (AUTO) 1.4 % (0-6); GLUCOSE 116 MG/DL (70-104); HEMATOCRIT 30.1 % (42.0-52.0); LYMPHOCYTES % (AUTO) 7.2 % (21-51); MAGNESIUM 1.6 MG/DL (1.5-2.4); MEAN CORPUSCULAR HGB CONC 33.1 g/dL (33.0-36.5); MEAN CORPUSCULAR VOLUME 90.6 FL (78-98); MEAN PLATELET VOLUME 6.9 FL (7.4-10.4); MONOCYTES % (AUTO) 12.4 % (2-12); NEUTROPHILS # (AUTO) 10.8 X10'3 (1.8-7.7); NEUTROPHILS % (AUTO) 78.3 % (42-75); PLATELET COUNT 863 X10'3 (140-440); RED BLOOD COUNT 3.32 X10'6 (4.70-6.10); RED CELL DISTRIBUTION WIDTH 15.2 % (11.5-14.5); SODIUM 140 MMOL/L (135-145); TOTAL CARBON DIOXIDE 28.9 MMOL/L (24-32); eGFR 59 ML/MIN
--- NOTE | 2023-01-14 06:30 | NUR ---
Patient in room ORTHO 4017. I have received report from Cori JEFFERY and had the opportunity to ask questions and assume patient care.
--- NOTE | 2023-01-14 06:35 | NUR ---
Problems reprioritized. Patient report given, questions answered & plan of care reviewed with JOSE D Harman.
[2023-01-14] MEDS: ipratropium/albuterol 3ml nebule NEB SCH ×3 (07:49→20:39)
[2023-01-14] MEDS: budesonide 0.5mg/2ml UD nebule IH SCH ×2 (07:49→20:39)
[2023-01-14] MEDS: docusate sod 100mg capsule PO SCH ×2 (08:00→19:46)
[2023-01-14] MEDS: K and/or MAG REPLACEMENT MC SCH ×2 (08:00→19:23)
[2023-01-14] MEDS: buPROPion SR 150mg tablet PO SCH (08:22)
[2023-01-14] MEDS: heparin, porcine 5000 units/ml vial SQ SCH ×2 (08:22→19:52)
[2023-01-14] MEDS: pantoprazole 40mg Tablet.DR PO SCH (08:22)
[2023-01-14] MEDS: carVEDilol 12.5mg tablet PO SCH ×2 (08:22→19:52)
[2023-01-14] MEDS: doxycycline inj 100 MG in normal saline 100ml IV soln 100 ML IV SCH ×2 (08:32→20:55)
[2023-01-14 09:14] LABS: TOTAL CELLS COUNTED 100
[2023-01-14 09:15] LABS: PLATELET ESTIMATE INCREASED
[2023-01-14 09:16] LABS: HYPOCHROMASIA 1+; POLYCHROMASIA FEW
[2023-01-14 10:00] VITALS: BP 113/63
[2023-01-14] MEDS: CefTRIAXone 2gm/D5W 50ml BAG 50 ML IV SCH (10:46)
[2023-01-14] MEDS: vancomycin/NS 1 GM ADD-VANTAGE 250 ML IV SCH ×2 (11:57→23:40)
[2023-01-14 18:00] VITALS: BP 125/64
--- NOTE | 2023-01-14 18:35 | NUR ---
Problems reprioritized. Patient report given, questions answered & plan of care reviewed with Kumar BALBUENA.
[2023-01-14] MEDS: losartan 50mg tablet PO SCH (21:20)
[2023-01-14 22:00] VITALS: BP 123/73
--- NOTE | 2023-01-15 04:53 | NUR ---
DERRICK BOAT LEVER OPERATOR documentation: I have reviewed and agree with all interventions, assessments performed and documented by JANEEN Parmar
[2023-01-15 05:11] LABS: BASOPHILS # (AUTO) 0.2 X10'3 (0-0.2); BASOPHILS % (AUTO) 0.8 % (0-1); HEMOGLOBIN 9.4 g/dl (14.0-17.9); RED CELL DISTRIBUTION WIDTH 15.4 % (11.5-14.5)
[2023-01-15 05:14] LABS: EOSINOPHILS # (AUTO) 0.3 X10'3 (0-0.9); EOSINOPHILS % (AUTO) 1.3 % (0-6); LYMPHOCYTES # (AUTO) 1.3 X10'3 (1.1-4.8); LYMPHOCYTES % (AUTO) 6.5 % (21-51); MEAN CORPUSCULAR HEMOGLOBIN 30.3 PG (27.0-31.0); MEAN CORPUSCULAR HGB CONC 33.5 g/dL (33.0-36.5); MEAN CORPUSCULAR VOLUME 90.6 FL (78-98); MEAN PLATELET VOLUME 7.1 FL (7.4-10.4); MONOCYTES # (AUTO) 2.5 X10'3 (0-0.9); MONOCYTES % (AUTO) 12.4 % (2-12); NEUTROPHILS # (AUTO) 15.7 X10'3 (1.8-7.7); PLATELET COUNT 913 X10'3 (140-440); RED BLOOD COUNT 3.09 X10'6 (4.70-6.10); WHITE BLOOD COUNT 19.9 X10'3 (4.5-11.0)
[2023-01-15 05:22] LABS: ALANINE AMINOTRANSFERASE 175 U/L (12-78); ALBUMIN 1.7 G/DL (3.4-5.0); ALBUMIN/GLOBULIN RATIO 0.4 (1.1-1.5); ALKALINE PHOSPHATASE 95 IU/L (46-116); ANION GAP 10 (8-16); ASPARTATE AMINO TRANSFERASE 107 U/L (10-37); BILIRUBIN,TOTAL 0.4 MG/DL (0.1-1.0); BLOOD UREA NITROGEN 18 MG/DL (7-18); BUN/CREATININE RATIO 15.9 (10.0-20.0); CALCIUM 8.6 MG/DL (8.5-10.1); CHLORIDE 103 MMOL/L (99-107); CREATININE 1.13 MG/DL (0.60-1.10); GLUCOSE 101 MG/DL (70-104); MAGNESIUM 1.4 MG/DL (1.5-2.4); PHOSPHORUS 4.2 MG/DL (2.3-4.5); POTASSIUM 3.7 MMOL/L (3.5-5.1); SODIUM 139 MMOL/L (135-145); TOTAL CARBON DIOXIDE 26.5 MMOL/L (24-32); eGFR 66 ML/MIN
[2023-01-15 06:00] VITALS: BP 118/67
--- NOTE | 2023-01-15 06:21 | NUR ---
Problems reprioritized. Patient report given, questions answered & plan of care reviewed with josefina BALBUENA.
--- NOTE | 2023-01-15 06:25 | NUR ---
Patient in room ORTHO 4017. I have received report from Kumar BALBUENA and had the opportunity to ask questions and assume patient care.
--- NOTE | 2023-01-15 06:39 | NUR ---
LOCKSTITCH WAISTLINE JOINER documentation: I have reviewed and agree with all interventions, assessments performed and documented by JANEEN Parmar
[2023-01-15 06:48] LABS: TOTAL CELLS COUNTED 100
[2023-01-15 06:49] LABS: PLATELET ESTIMATE INCREASED
[2023-01-15] MEDS: docusate sod 100mg capsule PO SCH ×2 (07:58→20:00)
[2023-01-15] MEDS: pantoprazole 40mg Tablet.DR PO SCH (07:58)
[2023-01-15] MEDS: carVEDilol 12.5mg tablet PO SCH ×2 (07:58→20:23)
[2023-01-15] MEDS: heparin, porcine 5000 units/ml vial SQ SCH ×2 (07:58→20:23)
[2023-01-15] MEDS: buPROPion SR 150mg tablet PO SCH (07:58)
[2023-01-15] MEDS: K and/or MAG REPLACEMENT MC SCH ×2 (07:59→20:00)
[2023-01-15] MEDS: CefTRIAXone 2gm/D5W 50ml BAG 50 ML IV SCH (08:01)
[2023-01-15] MEDS: ipratropium/albuterol 3ml nebule NEB SCH ×3 (08:12→20:27)
[2023-01-15] MEDS: budesonide 0.5mg/2ml UD nebule IH SCH ×2 (08:12→20:27)
[2023-01-15] MEDS: doxycycline inj 100 MG in normal saline 100ml IV soln 100 ML IV SCH (08:41)
[2023-01-15] MEDS: loperamide 2mg capsule PO PRN (08:47)
[2023-01-15 10:00] VITALS: BP 106/62
[2023-01-15] MEDS ORDERED: VANCOMYCIN LEVEL IV ONE (10:30)
[2023-01-15] MEDS: vancomycin/NS 1 GM ADD-VANTAGE 250 ML IV SCH (11:09)
[2023-01-15] MEDS ORDERED: tPA-cathflo 2 MG/2 ml IV flush ONE (12:50)
[2023-01-15 13:15] VITALS: BP 133/70
[2023-01-15 13:21] VITALS: BP 103/67
[2023-01-15 14:38] LABS: BFSOURCE LEFT PLEURAL FLD; PLEURAL FLUID PH < 6.670 (7.63-7.65)
[2023-01-15] MEDS: clindamycin-Cleocin 900mg/D5W 50 ML IV SCH (16:28)
--- NOTE | 2023-01-15 17:05 | NUR ---
Chest tube suctioning resumed per MD orders, HIGH CONTINUOUS
[2023-01-15 18:00] VITALS: BP 117/64
--- NOTE | 2023-01-15 18:41 | NUR ---
Problems reprioritized. Patient report given, questions answered & plan of care reviewed with Laura JEFFERY.
--- NOTE | 2023-01-15 18:53 | NUR ---
I have reviewed and agree with interventions, assessments,and documentation by Ghazal Puentes LVN.
--- NOTE | 2023-01-15 18:55 | NUR ---
Patient in room ORTHO 4017. I have received report from SHERLYN BALBUENA and had the opportunity to ask questions and assume patient care.
[2023-01-15] MEDS: HYDROcodone/acetaminophen 10/325mg tab PO PRN (20:22)
[2023-01-15] MEDS: losartan 50mg tablet PO SCH (20:23)
[2023-01-15 22:00] VITALS: BP 109/64
[2023-01-15] MEDS ORDERED: VANCOmycin 1250MG/NS 250ml Bag 250 ML IV SCH (23:00)
[2023-01-16] MEDS: clindamycin-Cleocin 900mg/D5W 50 ML IV SCH ×4 (00:24→23:56)
[2023-01-16] MEDS: HYDROcodone/acetaminophen 10/325mg tab PO PRN ×3 (00:34→13:57)
[2023-01-16 06:00] VITALS: BP 110/65
--- NOTE | 2023-01-16 06:18 | NUR ---
Problems reprioritized. Patient report given, questions answered & plan of care reviewed with SONI JEFFERY.
[2023-01-16 06:20] LABS: BASOPHILS # (AUTO) 0.1 X10'3 (0-0.2); BASOPHILS % (AUTO) 0.6 % (0-1); EOSINOPHILS # (AUTO) 0.2 X10'3 (0-0.9); EOSINOPHILS % (AUTO) 1.1 % (0-6); HEMOGLOBIN 9.6 g/dl (14.0-17.9); LYMPHOCYTES # (AUTO) 1.2 X10'3 (1.1-4.8); LYMPHOCYTES % (AUTO) 6.5 % (21-51); MEAN CORPUSCULAR HEMOGLOBIN 30.2 PG (27.0-31.0); MEAN CORPUSCULAR HGB CONC 33.1 g/dL (33.0-36.5); MEAN CORPUSCULAR VOLUME 91.2 FL (78-98); MEAN PLATELET VOLUME 6.8 FL (7.4-10.4); MONOCYTES # (AUTO) 2.8 X10'3 (0-0.9); MONOCYTES % (AUTO) 14.9 % (2-12); NEUTROPHILS # (AUTO) 14.2 X10'3 (1.8-7.7); NEUTROPHILS % (AUTO) 76.9 % (42-75); PLATELET COUNT 899 X10'3 (140-440); RED BLOOD COUNT 3.18 X10'6 (4.70-6.10); RED CELL DISTRIBUTION WIDTH 15.7 % (11.5-14.5); WHITE BLOOD COUNT 18.5 X10'3 (4.5-11.0)
--- NOTE | 2023-01-16 06:21 | NUR ---
Patient in room ORTHO 4017. I have received report from madhu leung rn and had the opportunity to ask questions and assume patient care.
[2023-01-16 06:24] LABS: ALANINE AMINOTRANSFERASE 111 U/L (12-78); ALBUMIN 1.7 G/DL (3.4-5.0); ALBUMIN/GLOBULIN RATIO 0.4 (1.1-1.5); ALKALINE PHOSPHATASE 83 IU/L (46-116); ANION GAP 9 (8-16); ASPARTATE AMINO TRANSFERASE 40 U/L (10-37); BILIRUBIN,TOTAL 0.5 MG/DL (0.1-1.0); BLOOD UREA NITROGEN 14 MG/DL (7-18); CALCIUM 8.6 MG/DL (8.5-10.1); CHLORIDE 104 MMOL/L (99-107); CREATININE 1.08 MG/DL (0.60-1.10); GLUCOSE 109 MG/DL (70-104); MAGNESIUM 2.1 MG/DL (1.5-2.4); POTASSIUM 3.9 MMOL/L (3.5-5.1); SODIUM 138 MMOL/L (135-145); TOTAL CARBON DIOXIDE 25.5 MMOL/L (24-32); TOTAL PROTEIN 5.9 G/DL (6.4-8.2); eGFR 70 ML/MIN
[2023-01-16] MEDS: heparin, porcine 5000 units/ml vial SQ SCH ×2 (07:19→20:25)
[2023-01-16] MEDS: buPROPion SR 150mg tablet PO SCH (07:19)
[2023-01-16] MEDS: pantoprazole 40mg Tablet.DR PO SCH (07:19)
[2023-01-16] MEDS: carVEDilol 12.5mg tablet PO SCH ×2 (07:27→20:26)
[2023-01-16] MEDS: docusate sod 100mg capsule PO SCH ×2 (07:27→20:00)
[2023-01-16 07:33] VITALS: BP 97/65
--- NOTE | 2023-01-16 07:33 | NUR ---
pt was fine not sim hoover coreg this am due to low bps, will let dr know in rounding
[2023-01-16] MEDS: K and/or MAG REPLACEMENT MC SCH ×2 (08:00→20:00)
[2023-01-16] MEDS: CefTRIAXone 2gm/D5W 50ml BAG 50 ML IV SCH (09:05)
[2023-01-16] MEDS: budesonide 0.5mg/2ml UD nebule IH SCH ×2 (09:27→20:32)
[2023-01-16] MEDS: ipratropium/albuterol 3ml nebule NEB SCH ×3 (09:27→20:32)
[2023-01-16] MEDS ORDERED: tPA-cathflo 2 MG/2 ml IV flush ONE (09:58)
[2023-01-16 10:52] VITALS: BP 108/68
[2023-01-16 18:15] VITALS: BP 119/63
[2023-01-16] MEDS: losartan 50mg tablet PO SCH (20:26)
[2023-01-16 22:00] VITALS: BP 94/56
--- NOTE | 2023-01-16 23:36 | NUR ---
Problems reprioritized. Patient report given, questions answered & plan of care reviewed with ary palmer.
--- NOTE | 2023-01-16 23:40 | NUR ---
Patient in room [facility]THO 4017. I have received report from JOSE D Howell and had the opportunity to ask questions and assume patient care. Patient is sleeping comfortably, I will continue to monitor.
--- NOTE | 2023-01-17 06:13 | NUR ---
Problems reprioritized. Patient report given, questions answered & plan of care reviewed with JOSE D Lemons.
[2023-01-17 06:18] LABS: ALANINE AMINOTRANSFERASE 79 U/L (12-78); ALBUMIN 1.7 G/DL (3.4-5.0); ALBUMIN/GLOBULIN RATIO 0.4 (1.1-1.5); ALKALINE PHOSPHATASE 76 IU/L (46-116); ANION GAP 7 (8-16); ASPARTATE AMINO TRANSFERASE 24 U/L (10-37); BILIRUBIN,TOTAL 0.5 MG/DL (0.1-1.0); BLOOD UREA NITROGEN 15 MG/DL (7-18); BUN/CREATININE RATIO 11.5 (10.0-20.0); CALCIUM 8.7 MG/DL (8.5-10.1); CHLORIDE 102 MMOL/L (99-107); CREATININE 1.31 MG/DL (0.60-1.10); GLUCOSE 103 MG/DL (70-104); MAGNESIUM 1.8 MG/DL (1.5-2.4); POTASSIUM 4.2 MMOL/L (3.5-5.1); SODIUM 135 MMOL/L (135-145); TOTAL CARBON DIOXIDE 25.7 MMOL/L (24-32); TOTAL PROTEIN 5.8 G/DL (6.4-8.2); eGFR 56 ML/MIN
--- NOTE | 2023-01-17 06:20 | NUR ---
Patient in room ORTHO 4017. I have received report from ary palmer and had the opportunity to ask questions and assume patient care.
[2023-01-17 06:32] LABS: BASOPHILS # (AUTO) 0.1 X10'3 (0-0.2); BASOPHILS % (AUTO) 0.5 % (0-1); EOSINOPHILS # (AUTO) 0.1 X10'3 (0-0.9); EOSINOPHILS % (AUTO) 0.6 % (0-6); HEMATOCRIT 29.1 % (42.0-52.0); HEMOGLOBIN 9.5 g/dl (14.0-17.9); LYMPHOCYTES # (AUTO) 1.2 X10'3 (1.1-4.8); LYMPHOCYTES % (AUTO) 6.2 % (21-51); MEAN CORPUSCULAR HEMOGLOBIN 29.5 PG (27.0-31.0); MEAN CORPUSCULAR HGB CONC 32.5 g/dL (33.0-36.5); MEAN CORPUSCULAR VOLUME 90.6 FL (78-98); MONOCYTES # (AUTO) 3.1 X10'3 (0-0.9); MONOCYTES % (AUTO) 15.3 % (2-12); NEUTROPHILS # (AUTO) 15.5 X10'3 (1.8-7.7); NEUTROPHILS % (AUTO) 77.4 % (42-75); PLATELET COUNT 949 X10'3 (140-440); RED BLOOD COUNT 3.21 X10'6 (4.70-6.10); RED CELL DISTRIBUTION WIDTH 15.4 % (11.5-14.5); WHITE BLOOD COUNT 20.1 X10'3 (4.5-11.0)
[2023-01-17] MEDS: carVEDilol 12.5mg tablet PO SCH ×2 (07:18→20:24)
[2023-01-17] MEDS: clindamycin-Cleocin 900mg/D5W 50 ML IV SCH ×3 (07:18→23:57)
[2023-01-17] MEDS: pantoprazole 40mg Tablet.DR PO SCH (07:18)
[2023-01-17] MEDS: buPROPion SR 150mg tablet PO SCH (07:18)
[2023-01-17] MEDS: docusate sod 100mg capsule PO SCH ×2 (07:18→20:00)
[2023-01-17] MEDS: K and/or MAG REPLACEMENT MC SCH ×2 (07:18→20:00)
[2023-01-17] MEDS: heparin, porcine 5000 units/ml vial SQ SCH ×2 (07:18→20:25)
[2023-01-17] MEDS: budesonide 0.5mg/2ml UD nebule IH SCH ×2 (07:41→20:28)
[2023-01-17] MEDS: ipratropium/albuterol 3ml nebule NEB SCH ×3 (07:41→20:28)
[2023-01-17 07:51] LABS: LARGE PLATELETS FEW
[2023-01-17 08:09] LABS: PLATELET ESTIMATE INCREASED
[2023-01-17] MEDS: CefTRIAXone 2gm/D5W 50ml BAG 50 ML IV SCH (08:14)
[2023-01-17] MEDS ORDERED: tPA-cathflo 2 MG/2 ml IV flush ONE (10:11)
[2023-01-17] MEDS ORDERED: VANCOMYCIN LEVEL IV ONE (10:30)
[2023-01-17] MEDS: loperamide 2mg capsule PO PRN (13:52)
[2023-01-17] MEDS: HYDROcodone/acetaminophen 10/325mg tab PO PRN ×2 (13:52→19:19)
[2023-01-17 14:00] VITALS: BP 100/47
--- NOTE | 2023-01-17 15:06 | NUR ---
Initial: Pt admit DX sepsis secondary to PNA, acute respiratory failure, L parapneumonic effusion s/p L CT, KATHY on CKD 3, depression, anemia, and transaminitis per EMR. Noted pt w/ decreased appetite and early satiety per MD note PO ~50% avg initial heart healthy meals not meeting needs. Pt seen by RD at bedside; pt reports likes salt on meals for flavors but dislikes gravy/oatmeal w/ decreased appetite though having food brought from outside by [facility] on occasion. Visualized [employer] breakfast sandwich at bedside during RD visit. RD verbally educated pt on importance of kcal/protein intake for recovery given DX; pt agreeable to chocolate or strawberry Ensure Enlive TIDWM to assist meeting needs- MD notified. LBM 01/15 received Imodium today per EMR. Will monitor for further PO trends and nutrition intervention needs this admit. Rec: 1. continue heart healthy diet; IF PO persists liberalize to regular diet 2. Chocolate/strawberry Ensure Enlive TIDWM; pending physician verification in EMR 3. bowel care per rx 4. scaled wt this admit; subsequent weekly wt Addendum: 01/17/23 at [address] Amended: Links added.
[2023-01-17] MEDS: guaiFENesin 200 MG/10 ML oral syrup UD cup PO PRN (16:35)
[2023-01-17 18:00] VITALS: BP 111/68
--- NOTE | 2023-01-17 18:18 | NUR ---
Problems reprioritized. Patient report given, questions answered & plan of care reviewed with SOPHIE BARRIOS RN.
--- NOTE | 2023-01-17 18:30 | NUR ---
Patient in room [facility]THO 4017. I have received report from MILLER JEFFERY and had the opportunity to ask questions and assume patient care.
[2023-01-17] MEDS: losartan 50mg tablet PO SCH (20:25)
[2023-01-17 22:00] VITALS: BP 105/53
[2023-01-18] MEDS: HYDROcodone/acetaminophen 10/325mg tab PO PRN ×3 (00:05→13:52)
[2023-01-18 06:09] VITALS: BP 115/59
--- NOTE | 2023-01-18 06:30 | NUR ---
Problems reprioritized. Patient report given, questions answered & plan of care reviewed with MILLER JEFFERY.
--- NOTE | 2023-01-18 06:39 | NUR ---
Patient in room [facility]TH[facility] 4017. I have received report from SOPHIE BARRIOS RN and had the opportunity to ask questions and assume patient care.
[2023-01-18 06:40] LABS: BASOPHILS # (AUTO) 0.1 X10'3 (0-0.2); MEAN PLATELET VOLUME 6.7 FL (7.4-10.4); NEUTROPHILS # (AUTO) 9.7 X10'3 (1.8-7.7); RED BLOOD COUNT 3.08 X10'6 (4.70-6.10); WHITE BLOOD COUNT 13.2 X10'3 (4.5-11.0)
[2023-01-18 06:42] LABS: EOSINOPHILS # (AUTO) 0.3 X10'3 (0-0.9); EOSINOPHILS % (AUTO) 2.4 % (0-6); HEMOGLOBIN 9.2 g/dl (14.0-17.9); LYMPHOCYTES # (AUTO) 1.3 X10'3 (1.1-4.8); LYMPHOCYTES % (AUTO) 9.5 % (21-51); MEAN CORPUSCULAR HEMOGLOBIN 29.9 PG (27.0-31.0); MEAN CORPUSCULAR HGB CONC 32.9 g/dL (33.0-36.5); MEAN CORPUSCULAR VOLUME 90.9 FL (78-98); MONOCYTES # (AUTO) 1.9 X10'3 (0-0.9); MONOCYTES % (AUTO) 14.2 % (2-12); NEUTROPHILS % (AUTO) 72.9 % (42-75); PLATELET COUNT 898 X10'3 (140-440); RED CELL DISTRIBUTION WIDTH 15.3 % (11.5-14.5)
[2023-01-18 06:52] LABS: ALBUMIN 1.7 G/DL (3.4-5.0); ANION GAP 5 (8-16); BLOOD UREA NITROGEN 21 MG/DL (7-18); BUN/CREATININE RATIO 15.2 (10.0-20.0); CALCIUM 8.7 MG/DL (8.5-10.1); CHLORIDE 102 MMOL/L (99-107); CREATININE 1.38 MG/DL (0.60-1.10); GLUCOSE 96 MG/DL (70-104); POTASSIUM 4.3 MMOL/L (3.5-5.1); SODIUM 134 MMOL/L (135-145); TOTAL CARBON DIOXIDE 26.8 MMOL/L (24-32); eGFR 52 ML/MIN
[2023-01-18 07:08] LABS: PLATELET ESTIMATE INCREASED; TOTAL CELLS COUNTED 100
[2023-01-18] MEDS: docusate sod 100mg capsule PO SCH ×2 (07:11→19:37)
[2023-01-18] MEDS: K and/or MAG REPLACEMENT MC SCH ×2 (07:11→19:37)
[2023-01-18] MEDS: clindamycin-Cleocin 900mg/D5W 50 ML IV SCH ×2 (07:18→15:19)
[2023-01-18] MEDS: buPROPion SR 150mg tablet PO SCH (07:18)
[2023-01-18] MEDS: heparin, porcine 5000 units/ml vial SQ SCH ×2 (07:18→19:19)
[2023-01-18] MEDS: carVEDilol 12.5mg tablet PO SCH ×2 (07:18→19:19)
[2023-01-18] MEDS: guaiFENesin 200 MG/10 ML oral syrup UD cup PO PRN (07:18)
[2023-01-18] MEDS: pantoprazole 40mg Tablet.DR PO SCH (07:18)
[2023-01-18] MEDS: CefTRIAXone 2gm/D5W 50ml BAG 50 ML IV SCH (08:10)
[2023-01-18] MEDS: ipratropium/albuterol 3ml nebule NEB SCH ×3 (08:19→21:07)
[2023-01-18] MEDS: budesonide 0.5mg/2ml UD nebule IH SCH ×2 (08:19→21:07)
[2023-01-18 10:00] VITALS: BP 92/56
[2023-01-18] MEDS ORDERED: guaiFENesin/DM 10ml UD oral syrup PO PRN (14:14)
[2023-01-18] MEDS: guaiFENesin/DM 10ml UD oral syrup PO PRN ×2 (14:19→21:06)
[2023-01-18 18:00] VITALS: BP 106/64
--- NOTE | 2023-01-18 18:42 | NUR ---
Problems reprioritized. Patient report given, questions answered & plan of care reviewed with PRUDENCE RN.
[2023-01-18] MEDS: HYDROcodone/acetaminophen 5mg/325mg tablet PO PRN (19:19)
--- NOTE | 2023-01-18 19:26 | NUR ---
Patient in room [facility]THO 4017. I have received report from MILLER JEFFERY and had the opportunity to ask questions and assume patient care.
[2023-01-18] MEDS: losartan 50mg tablet PO SCH (21:07)
[2023-01-18 22:00] VITALS: BP 113/65
[2023-01-19] MEDS: clindamycin-Cleocin 900mg/D5W 50 ML IV SCH ×3 (00:11→15:29)
--- NOTE | 2023-01-19 06:32 | NUR ---
Problems reprioritized. Patient report given, questions answered & plan of care reviewed with SHARMIN JEFFERY.
[2023-01-19 06:57] LABS: BASOPHILS # (AUTO) 0.1 X10'3 (0-0.2); EOSINOPHILS # (AUTO) 0.4 X10'3 (0-0.9); EOSINOPHILS % (AUTO) 4.2 % (0-6); HEMATOCRIT 28.6 % (42.0-52.0); HEMOGLOBIN 9.4 g/dl (14.0-17.9); LYMPHOCYTES # (AUTO) 1.1 X10'3 (1.1-4.8); MEAN CORPUSCULAR HEMOGLOBIN 29.9 PG (27.0-31.0); MEAN PLATELET VOLUME 6.7 FL (7.4-10.4); MONOCYTES # (AUTO) 1.2 X10'3 (0-0.9)
[2023-01-19 06:59] LABS: BASOPHILS % (AUTO) 1.2 % (0-1); LYMPHOCYTES % (AUTO) 13.3 % (21-51); MEAN CORPUSCULAR HGB CONC 32.9 g/dL (33.0-36.5); MEAN CORPUSCULAR VOLUME 90.7 FL (78-98); MONOCYTES % (AUTO) 14.1 % (2-12); NEUTROPHILS # (AUTO) 5.8 X10'3 (1.8-7.7); NEUTROPHILS % (AUTO) 67.2 % (42-75); PLATELET COUNT 986 X10'3 (140-440); RED BLOOD COUNT 3.16 X10'6 (4.70-6.10); RED CELL DISTRIBUTION WIDTH 15.7 % (11.5-14.5); WHITE BLOOD COUNT 8.6 X10'3 (4.5-11.0)
[2023-01-19] MEDS: CefTRIAXone 2gm/D5W 50ml BAG 50 ML IV SCH (07:23)
[2023-01-19] MEDS: buPROPion SR 150mg tablet PO SCH (07:23)
[2023-01-19 07:24] LABS: ALBUMIN 1.8 G/DL (3.4-5.0); ANION GAP 7 (8-16); BLOOD UREA NITROGEN 18 MG/DL (7-18); BUN/CREATININE RATIO 15.5 (10.0-20.0); CALCIUM 8.8 MG/DL (8.5-10.1); CHLORIDE 103 MMOL/L (99-107); CREATININE 1.16 MG/DL (0.60-1.10); GLUCOSE 91 MG/DL (70-104); POTASSIUM 4.4 MMOL/L (3.5-5.1); SODIUM 136 MMOL/L (135-145); TOTAL CARBON DIOXIDE 25.9 MMOL/L (24-32); eGFR 64 ML/MIN
[2023-01-19] MEDS: heparin, porcine 5000 units/ml vial SQ SCH ×2 (07:24→20:09)
[2023-01-19] MEDS: carVEDilol 12.5mg tablet PO SCH ×2 (07:24→20:07)
[2023-01-19] MEDS: pantoprazole 40mg Tablet.DR PO SCH (07:24)
[2023-01-19] MEDS: docusate sod 100mg capsule PO SCH ×2 (07:40→20:00)
[2023-01-19] MEDS: K and/or MAG REPLACEMENT MC SCH ×2 (07:40→20:00)
[2023-01-19] MEDS: ipratropium/albuterol 3ml nebule NEB SCH ×3 (08:02→20:21)
[2023-01-19] MEDS: budesonide 0.5mg/2ml UD nebule IH SCH ×2 (08:02→20:21)
[2023-01-19 08:04] LABS: PLATELET ESTIMATE INCREASED; TOTAL CELLS COUNTED 100
[2023-01-19 08:05] LABS: ANISOCYTOSIS 1+; HYPOCHROMASIA 1+; LARGE PLATELETS FEW; POLYCHROMASIA 1+; ROULEAUX 1+
[2023-01-19 10:00] VITALS: BP 111/65
[2023-01-19] MEDS: guaiFENesin/DM 10ml UD oral syrup PO PRN ×2 (11:29→20:06)
[2023-01-19] MEDS: HYDROcodone/acetaminophen 5mg/325mg tablet PO PRN (11:30)
[2023-01-19 18:00] VITALS: BP 120/68
--- NOTE | 2023-01-19 18:24 | NUR ---
Problems reprioritized. Patient report given, questions answered & plan of care reviewed with Gilson.
--- NOTE | 2023-01-19 18:30 | NUR ---
Patient in room [facility]TH[facility] 4017. I have received report from SHARMIN JEFFERY and had the opportunity to ask questions and assume patient care.
[2023-01-19] MEDS: HYDROcodone/acetaminophen 10/325mg tab PO PRN (20:07)
[2023-01-19] MEDS: losartan 50mg tablet PO SCH (20:07)
[2023-01-19 22:00] VITALS: BP 99/60
[2023-01-20] MEDS: clindamycin-Cleocin 900mg/D5W 50 ML IV SCH ×3 (00:32→15:59)
--- NOTE | 2023-01-20 06:10 | NUR ---
Problems reprioritized. Patient report given, questions answered & plan of care reviewed with FELICIANO JEFFERY.
--- NOTE | 2023-01-20 06:11 | NUR ---
Problems reprioritized. Patient report given, questions answered & plan of care reviewed with SHARMIN JEFFERY.
[2023-01-20 06:22] LABS: EOSINOPHILS # (AUTO) 0.4 X10'3 (0-0.9); LYMPHOCYTES # (AUTO) 1.2 X10'3 (1.1-4.8); MONOCYTES # (AUTO) 1.3 X10'3 (0-0.9)
[2023-01-20 06:25] LABS: BASOPHILS # (AUTO) 0.1 X10'3 (0-0.2); BASOPHILS % (AUTO) 1.2 % (0-1); EOSINOPHILS % (AUTO) 4.8 % (0-6); HEMATOCRIT 29.4 % (42.0-52.0); HEMOGLOBIN 9.5 g/dl (14.0-17.9); LYMPHOCYTES % (AUTO) 14.2 % (21-51); MEAN CORPUSCULAR HEMOGLOBIN 29.4 PG (27.0-31.0); MEAN CORPUSCULAR HGB CONC 32.4 g/dL (33.0-36.5); MEAN CORPUSCULAR VOLUME 90.5 FL (78-98); MEAN PLATELET VOLUME 6.7 FL (7.4-10.4); MONOCYTES % (AUTO) 15.6 % (2-12); NEUTROPHILS # (AUTO) 5.3 X10'3 (1.8-7.7); NEUTROPHILS % (AUTO) 64.2 % (42-75); RED BLOOD COUNT 3.25 X10'6 (4.70-6.10); RED CELL DISTRIBUTION WIDTH 15.3 % (11.5-14.5); WHITE BLOOD COUNT 8.2 X10'3 (4.5-11.0)
[2023-01-20 06:33] LABS: ALANINE AMINOTRANSFERASE 46 U/L (12-78); ALBUMIN 2.1 G/DL (3.4-5.0); ALBUMIN/GLOBULIN RATIO 0.5 (1.1-1.5); ALKALINE PHOSPHATASE 62 IU/L (46-116); ANION GAP 6 (8-16); ASPARTATE AMINO TRANSFERASE 22 U/L (10-37); BILIRUBIN,TOTAL 0.2 MG/DL (0.1-1.0); BLOOD UREA NITROGEN 14 MG/DL (7-18); BUN/CREATININE RATIO 11.9 (10.0-20.0); CALCIUM 9.1 MG/DL (8.5-10.1); CHLORIDE 103 MMOL/L (99-107); CREATININE 1.18 MG/DL (0.60-1.10); GLUCOSE 97 MG/DL (70-104); POTASSIUM 4.3 MMOL/L (3.5-5.1); SODIUM 138 MMOL/L (135-145); TOTAL CARBON DIOXIDE 28.9 MMOL/L (24-32); TOTAL PROTEIN 6.2 G/DL (6.4-8.2); eGFR 63 ML/MIN
[2023-01-20 06:34] LABS: PLATELET COUNT 1073 X10'3 (140-440)
--- NOTE | 2023-01-20 06:35 | NUR ---
cRITICAL LAB RECEIVED FROM LAB AT 0634. pLT [id number]. NURSE JOSE D FINNEY NOTFIED.
[2023-01-20 07:30] LABS: ANISOCYTOSIS 1+; PLATELET ESTIMATE INCREASED; POLYCHROMASIA FEW; TOTAL CELLS COUNTED 100
[2023-01-20] MEDS: K and/or MAG REPLACEMENT MC SCH ×2 (08:00→18:30)
[2023-01-20] MEDS: heparin, porcine 5000 units/ml vial SQ SCH ×2 (08:00→20:30)
[2023-01-20] MEDS: pantoprazole 40mg Tablet.DR PO SCH (08:00)
[2023-01-20] MEDS: buPROPion SR 150mg tablet PO SCH (08:00)
[2023-01-20] MEDS: docusate sod 100mg capsule PO SCH ×2 (08:00→20:00)
[2023-01-20] MEDS: carVEDilol 12.5mg tablet PO SCH ×2 (08:00→20:32)
[2023-01-20] MEDS: CefTRIAXone 2gm/D5W 50ml BAG 50 ML IV SCH (08:03)
[2023-01-20] MEDS: HYDROcodone/acetaminophen 5mg/325mg tablet PO PRN (08:03)
[2023-01-20] MEDS: budesonide 0.5mg/2ml UD nebule IH SCH ×2 (08:31→21:18)
[2023-01-20] MEDS: ipratropium/albuterol 3ml nebule NEB SCH ×3 (08:31→21:18)
[2023-01-20 10:00] VITALS: BP 104/60
[2023-01-20 18:00] VITALS: BP 131/72
--- NOTE | 2023-01-20 19:13 | NUR ---
Patient in room [facility]TH[facility] 4017. I have received report from Trish JEFFERY and had the opportunity to ask questions and assume patient care.
[2023-01-20] MEDS: HYDROcodone/acetaminophen 10/325mg tab PO PRN (20:30)
[2023-01-20] MEDS: losartan 50mg tablet PO SCH (20:31)
[2023-01-20 22:00] VITALS: BP 123/69
[2023-01-21] MEDS: clindamycin-Cleocin 900mg/D5W 50 ML IV SCH ×2 (00:10→07:44)
[2023-01-21] MEDS: HYDROcodone/acetaminophen 10/325mg tab PO PRN ×2 (00:45→07:58)
[2023-01-21 06:00] VITALS: BP 121/69
--- NOTE | 2023-01-21 06:48 | NUR ---
Patient in room [facility]THO 4017. I have received report from Ramona and had the opportunity to ask questions and assume patient care.
[2023-01-21 07:03] LABS: ALANINE AMINOTRANSFERASE 32 U/L (12-78); ALBUMIN 2.2 G/DL (3.4-5.0); ALBUMIN/GLOBULIN RATIO 0.5 (1.1-1.5); ALKALINE PHOSPHATASE 60 IU/L (46-116); ANION GAP 7 (8-16); ASPARTATE AMINO TRANSFERASE 19 U/L (10-37); BILIRUBIN,TOTAL 0.2 MG/DL (0.1-1.0); BLOOD UREA NITROGEN 12 MG/DL (7-18); BUN/CREATININE RATIO 10.7 (10.0-20.0); CHLORIDE 103 MMOL/L (99-107); CREATININE 1.12 MG/DL (0.60-1.10); GLUCOSE 96 MG/DL (70-104); POTASSIUM 4.2 MMOL/L (3.5-5.1); SODIUM 138 MMOL/L (135-145); TOTAL CARBON DIOXIDE 28.5 MMOL/L (24-32); TOTAL PROTEIN 6.3 G/DL (6.4-8.2); eGFR 67 ML/MIN
[2023-01-21 07:14] LABS: EOSINOPHILS # (AUTO) 0.5 X10'3 (0-0.9); LYMPHOCYTES # (AUTO) 1.2 X10'3 (1.1-4.8); MONOCYTES % (AUTO) 15.5 % (2-12); NEUTROPHILS % (AUTO) 54.1 % (42-75); WHITE BLOOD COUNT 6.2 X10'3 (4.5-11.0)
[2023-01-21 07:17] LABS: BASOPHILS # (AUTO) 0.2 X10'3 (0-0.2); BASOPHILS % (AUTO) 2.6 % (0-1); EOSINOPHILS % (AUTO) 8.4 % (0-6); HEMATOCRIT 28.7 % (42.0-52.0); HEMOGLOBIN 9.5 g/dl (14.0-17.9); LYMPHOCYTES % (AUTO) 19.4 % (21-51); MEAN CORPUSCULAR HEMOGLOBIN 30.2 PG (27.0-31.0); MEAN CORPUSCULAR HGB CONC 33.2 g/dL (33.0-36.5); MEAN PLATELET VOLUME 6.5 FL (7.4-10.4); NEUTROPHILS # (AUTO) 3.3 X10'3 (1.8-7.7); RED BLOOD COUNT 3.16 X10'6 (4.70-6.10); RED CELL DISTRIBUTION WIDTH 15.5 % (11.5-14.5)
[2023-01-21 07:30] LABS: PLATELET COUNT 1012 X10'3 (140-440)
--- NOTE | 2023-01-21 07:38 | NUR ---
RE: Faustino in 4016, platelets 1012, just jania Benito [id number]
[2023-01-21] MEDS: K and/or MAG REPLACEMENT MC SCH (07:39)
[2023-01-21] MEDS: pantoprazole 40mg Tablet.DR PO SCH (07:49)
[2023-01-21] MEDS: buPROPion SR 150mg tablet PO SCH (07:50)
[2023-01-21] MEDS: docusate sod 100mg capsule PO SCH (07:50)
[2023-01-21] MEDS: heparin, porcine 5000 units/ml vial SQ SCH (07:51)
[2023-01-21] MEDS: carVEDilol 12.5mg tablet PO SCH (07:52)
[2023-01-21 08:04] LABS: PLATELET ESTIMATE INCREASED; TOTAL CELLS COUNTED 100
[2023-01-21 08:06] LABS: POLYCHROMASIA FEW
[2023-01-21] MEDS: CefTRIAXone 2gm/D5W 50ml BAG 50 ML IV SCH (08:26)
[2023-01-21] MEDS: ipratropium/albuterol 3ml nebule NEB SCH (09:00)
[2023-01-21] MEDS: budesonide 0.5mg/2ml UD nebule IH SCH (09:00)
[2023-01-21 10:00] VITALS: BP 112/69
[2023-01-21] MEDS ORDERED: CEFD300C3 PO (11:44)
[2023-01-21] MEDS ORDERED: CLIN-97 PO (11:44)
--- NOTE | 2023-01-21 11:51 | NUR ---
F/u 01/21: Pt advanced to regular diet though PO remains poor ~38% past 3 days not meeting needs. Ensure Enlive TIDWM still pending physician verification in EMR; CHEIKH d/w RN regarding physician sign off of ONS in EMR once they round this AM. Pt not going to meet nutrition needs without ONS. CT removed today per EMR. LBM 01/18 refusing most colace per EMR. Will continue to follow. Rec: 1. continue regular diet; encourage PO; food from outside from [facility] per pt preference 2. Chocolate/strawberry Ensure Enlive TIDWM; pending physician verification in EMR 3. bowel care per rx 4. scaled wt this admit; subsequent weekly wt Addendum: 01/21/23 at [address] Amended: Links added.
[2023-01-21] MEDS ORDERED: HYDR-3965 PO (12:06)
--- NOTE | 2023-01-21 12:41 | NUR ---
Reviewed discharge instructions with patient and spouse. patient verbalized understanding. Patient is alert, oriented and able to dress himself and gather belongings. Patient opted to walk downstairs, accompanied by his spouse, and discharge home.
== END 2023-01-21 12:40 | disposition home or self-care (01) | DRG 871 ==
LOC: ER 19:43 → ED HOLD 23:22 → EDBEDREQ 23:52 → ORTHO 4S 01-13 00:10 → EDBEDREQ 01-13 00:29
PROVIDERS: ADMIT Family Medicine; ATTEND Internal Medicine
PROC: 0W9930Z Drainage of Right Pleural Cavity with Drainage Device, Percutaneous Approach (ICD-10-PCS; 2023-01-15)
PROC: 0W9B30Z Drainage of Left Pleural Cavity with Drainage Device, Percutaneous Approach (ICD-10-PCS; principal; 2023-01-16)
PROC: 3E03317 Introduction of Other Thrombolytic into Peripheral Vein, Percutaneous Approach (ICD-10-PCS; 2023-01-16)
DX: A41.9 Sepsis, unspecified organism (principal); E43 Unspecified severe protein-calorie malnutrition; J18.9 Pneumonia, unspecified organism; N17.0 Acute kidney failure with tubular necrosis; J86.9 Pyothorax without fistula; J96.01 Acute respiratory failure with hypoxia; E87.1 Hypo-osmolality and hyponatremia; J91.8 Pleural effusion in other conditions classified elsewhere; E86.0 Dehydration; N18.30 Chronic kidney disease, stage 3 unspecified; Z68.28 Body mass index [BMI] 28.0-28.9, adult; M19.90 Unspecified osteoarthritis, unspecified site; E78.5 Hyperlipidemia, unspecified; R74.01 Elevation of levels of liver transaminase levels; D63.1 Anemia in chronic kidney disease; D75.839 Thrombocytosis, unspecified; F32.A Depression, unspecified; R68.81 Early satiety; J44.9 Chronic obstructive pulmonary disease, unspecified; J45.909 Unspecified asthma, uncomplicated; I12.9 Hypertensive chronic kidney disease with stage 1 through stage 4 chronic kidney disease, or unspecified chronic kidney disease; Z96.653 Presence of artificial knee joint, bilateral; Z96.611 Presence of right artificial shoulder joint; Z79.899 Other long term (current) drug therapy; Z82.49 Family history of ischemic heart disease and other diseases of the circulatory system; Z82.61 Family history of arthritis; Z83.2 Family history of diseases of the blood and blood-forming organs and certain disorders involving the immune mechanism; Z87.891 Personal history of nicotine dependence
CPT/HCPCS: 32557; 36415; 71045; 71250; 74176; 76942; 80048; 80053; 80069; 80202; 82042; 82150; 82945; 83540; 83550; 83605; 83615; 83735; 83880; 83986; 84145; 84157; 84484; 85007; 85008; 85025; 87040; 87070; 87075; 87081; 87102; 89051; 93005; 93306; 94640; 94760; 96365; 97116; 97161; 97530; 99285; A4421; A4615; A6258; A6449; C1729; C1769; G0378; J0696; J1644; J1940; J2997; J3370; J3475; J3490; J7030; J7040; Q9963

== ENCOUNTER 2023-02-08 11:10 | Outpatient (CLI) | payer BC ==
[~2023-02-08 11:10] MED LIST changes: +ALBU90AE2 INH; -AZIT-164 PO; +CEFD300C3 PO; +CLIN-97 PO; +HYDR-3965 PO; -PER5325T PO; -PERFLUTREN PROTEIN-A MICROSPHR (Optison) 0.22 MG/ML 3ML VIAL IV ONE
== END 2023-02-08 23:59 | disposition home or self-care (01) ==
LOC: RAD 11:10
PROVIDERS: ATTEND Family Medicine
DX: J18.9 Pneumonia, unspecified organism (principal)
CPT/HCPCS: 71046

== ENCOUNTER 2024-01-09 09:43 | Outpatient (CLI) | payer BC ==
[~2024-01-09 09:43] MED LIST changes: -CEFD300C3 PO; -HYDR-3965 PO
[2024-01-09 10:27] LABS: BILIRUBIN,URINE SMALL (Neg); CLARITY,URINE CLEAR (Clear); COLOR,URINE YELLOW (Yellow); GLUCOSE, URINE NEGATIVE (Neg); KETONES,URINE NEGATIVE (Neg); LEUKOCYTE ESTERASE ,URINE NEGATIVE (Neg); NITRITES, URINE NEGATIVE (Neg); OCCULT BLOOD,URINE NEGATIVE (Neg); PH,URINE 5.5 (4.8-8.0); PROTEIN,URINE 30 mg/dl (Neg); UROBILINOGEN,URINE 0.2 E.U/dL (0.2-1.0)
[2024-01-09 10:31] LABS: BASOPHILS # (AUTO) 0.1 X10'3 (0-0.2); BASOPHILS % (AUTO) 1.2 % (0-1); EOSINOPHILS # (AUTO) 0.3 X10'3 (0-0.9); EOSINOPHILS % (AUTO) 4.9 % (0-6); HEMATOCRIT 41.2 % (42.0-52.0); LYMPHOCYTES # (AUTO) 1.3 X10'3 (1.1-4.8); LYMPHOCYTES % (AUTO) 20.6 % (21-51); MEAN CORPUSCULAR HEMOGLOBIN 31.7 PG (27.0-31.0); MEAN CORPUSCULAR VOLUME 93.1 FL (78-98); MEAN PLATELET VOLUME 7.5 FL (7.4-10.4); MONOCYTES # (AUTO) 0.7 X10'3 (0-0.9); MONOCYTES % (AUTO) 10.6 % (2-12); NEUTROPHILS # (AUTO) 3.9 X10'3 (1.8-7.7); NEUTROPHILS % (AUTO) 62.7 % (42-75); PLATELET COUNT 345 X10'3 (140-440); RED BLOOD COUNT 4.42 X10'6 (4.70-6.10); RED CELL DISTRIBUTION WIDTH 14.3 % (11.5-14.5); WHITE BLOOD COUNT 6.2 X10'3 (4.5-11.0)
[2024-01-09 10:36] LABS: UA COLLECTION TYPE VOIDED
[2024-01-09 10:49] LABS: ALANINE AMINOTRANSFERASE 82 U/L (12-78); ALBUMIN 4.2 G/DL (3.4-5.0); ALBUMIN/GLOBULIN RATIO 1.1 (1.1-1.5); ALKALINE PHOSPHATASE 67 IU/L (46-116); ANION GAP 10 (8-16); ASPARTATE AMINO TRANSFERASE 67 U/L (10-37); BILIRUBIN,TOTAL 0.5 MG/DL (0.1-1.0); BLOOD UREA NITROGEN 11 MG/DL (7-18); BUN/CREATININE RATIO 11.3 (10.0-20.0); CALCIUM 8.9 MG/DL (8.5-10.1); CHLORIDE 103 MMOL/L (99-107); CHOL/HDL RATIO 3.1 (0.00-4.99); CHOLESTEROL 207 MG/DL (0-200); CREATININE 0.97 MG/DL (0.60-1.10); GLUCOSE 92 MG/DL (70-104); HDL CHOLESTEROL 67 MG/DL (35-60); LDL CHOLESTEROL 109 MG/DL (50-100); POTASSIUM 3.9 MMOL/L (3.5-5.1); SODIUM 140 MMOL/L (135-145); THYROID STIMULATING HORMONE 1.96 ulU/ml (0.34-4.50); TOTAL CARBON DIOXIDE 26.7 MMOL/L (24-32); TOTAL PROTEIN 8.1 G/DL (6.4-8.2); TRIGLYCERIDES 179 MG/DL (20-135); eGFR 78 ML/MIN
[2024-01-09 11:40] LABS: RBC,URINE 0-2 /HPF (0-2); WBC,URINE 0-4 /HPF (0-4)
[2024-01-09 11:41] LABS: SQUAMOUS EPITHELIAL CELL,UR FEW /LPF (FEW)
[2024-01-09 11:44] LABS: MUCUS STRANDS MANY /LPF (Neg)
[2024-01-09 11:47] LABS: BACTERIA,URINE FEW /HPF (Neg)
[2024-01-10 10:18] LABS: TESTOSTERONE, SERUM 421 ng/dL (264-916)
[2024-01-15 19:24] LABS: TESTOSTERONE, FREE, DIRECT 9.9 pg/mL (6.6-18.1)
== END 2024-01-09 23:59 | disposition home or self-care (01) ==
LOC: RAD 09:43
PROVIDERS: ATTEND Family Medicine
DX: Z00.01 Encounter for general adult medical examination with abnormal findings (principal); I10 Essential (primary) hypertension
CPT/HCPCS: 36415; 80053; 80061; 81001; 84402; 84403; 84436; 84443; 85025

== ENCOUNTER 2024-02-04 08:49 | Outpatient (CLI) | payer BC ==
[~2024-02-04 08:49] MED LIST changes: -ALBU90AE2 INH; +ALBU90AE3 INH; -ROSU10TA28 PO; +ROSU10TA72 PO
[2024-02-04] MEDS ORDERED: GADOTERATE MEGLUMINE 7.5 MMOL/15 ML VIAL IV ONE (09:46)
== END 2024-02-04 23:59 | disposition home or self-care (01) ==
LOC: MRI 08:49
PROVIDERS: ATTEND Family Medicine
DX: D33.3 Benign neoplasm of cranial nerves (principal); G93.89 Other specified disorders of brain; J32.0 Chronic maxillary sinusitis; J32.3 Chronic sphenoidal sinusitis
CPT/HCPCS: 70553; A9575

== ENCOUNTER 2024-07-15 09:55 | Outpatient (CLI) | payer BC ==
[2024-07-15 11:40] LABS: BASOPHILS # (AUTO) 0.1 X10'3 (0-0.2); BASOPHILS % (AUTO) 0.9 % (0-1); EOSINOPHILS # (AUTO) 0.4 X10'3 (0-0.9); EOSINOPHILS % (AUTO) 3.4 % (0-6); HEMATOCRIT 40.2 % (42.0-52.0); HEMOGLOBIN 13.9 g/dl (14.0-17.9); LYMPHOCYTES # (AUTO) 1.1 X10'3 (1.1-4.8); LYMPHOCYTES % (AUTO) 10.3 % (21-51); MEAN CORPUSCULAR HEMOGLOBIN 32.2 PG (27.0-31.0); MEAN CORPUSCULAR HGB CONC 34.6 g/dL (33.0-36.5); MEAN CORPUSCULAR VOLUME 93.1 FL (78-98); MEAN PLATELET VOLUME 7.8 FL (7.4-10.4); MONOCYTES # (AUTO) 1.2 X10'3 (0-0.9); MONOCYTES % (AUTO) 10.9 % (2-12); NEUTROPHILS # (AUTO) 7.9 X10'3 (1.8-7.7); NEUTROPHILS % (AUTO) 74.5 % (42-75); PLATELET COUNT 318 X10'3 (140-440); RED BLOOD COUNT 4.32 X10'6 (4.70-6.10); RED CELL DISTRIBUTION WIDTH 13.4 % (11.5-14.5); WHITE BLOOD COUNT 10.6 X10'3 (4.5-11.0)
[2024-07-15 11:48] LABS: ALANINE AMINOTRANSFERASE 36 U/L (12-78); ALBUMIN 3.7 G/DL (3.4-5.0); ALBUMIN/GLOBULIN RATIO 0.8 (1.1-1.5); ALKALINE PHOSPHATASE 67 IU/L (46-116); ANION GAP 10 (8-16); ASPARTATE AMINO TRANSFERASE 30 U/L (10-37); BILIRUBIN,TOTAL 0.8 MG/DL (0.1-1.0); BLOOD UREA NITROGEN 12 MG/DL (7-18); BUN/CREATININE RATIO 10.8 (10.0-20.0); CALCIUM 8.9 MG/DL (8.5-10.1); CHLORIDE 102 MMOL/L (99-107); CREATININE 1.11 MG/DL (0.60-1.10); GLUCOSE 107 MG/DL (70-104); POTASSIUM 4.1 MMOL/L (3.5-5.1); SODIUM 139 MMOL/L (135-145); TOTAL CARBON DIOXIDE 26.8 MMOL/L (24-32); TOTAL PROTEIN 8.1 G/DL (6.4-8.2); eGFR 67 ML/MIN
[2024-07-15 11:57] LABS: CHOL/HDL RATIO 1.9 (0.00-4.99); CHOLESTEROL 161 MG/DL (0-200); FREE T4 (FREE THYROXINE) 1.16 NG/DL (0.73-1.40); HDL CHOLESTEROL 85 MG/DL (35-60); LDL CHOLESTEROL 59 MG/DL (50-100); THYROID STIMULATING HORMONE 1.11 ulU/ml (0.34-4.50); TRIGLYCERIDES 59 MG/DL (20-135)
== END 2024-07-15 23:59 | disposition home or self-care (01) ==
LOC: LAB 09:55
PROVIDERS: ATTEND Nurse Practitioner Family
DX: I10 Essential (primary) hypertension (principal); E78.5 Hyperlipidemia, unspecified; R53.83 Other fatigue; R30.0 Dysuria
CPT/HCPCS: 36415; 80053; 80061; 84439; 84443; 85025

== ENCOUNTER 2025-02-10 07:14 | Emergency (ER) | payer BC ==
[~2025-02-10] VITALS: Ht 188 cm; Wt 109.1 kg
[~2025-02-10 07:14] MED LIST changes: -BUPR-230 PO; +BUPR-724 PO
[2025-02-10 07:18] VITALS: TEMP 97.9
--- NOTE | 2025-02-10 07:53 | Physician Documentation ---
History of Present Illness ~ Chief Complaint: Rib pain Stated Complaint: RIB PAIN Time Seen by MD: 07:37 OK to notify your PCP?: Yes Primary Medical Doctor: Sabas Source: patient, RN/, RN notes reviewed, old records Mode of Arrival: POV Exam Limitations: no limitations HPI This pleasant 64-year-old was working with his in the garden this weekend on Sunday. She slipped and fell and he caught her. Unfortunately her knee went right into his left ribs. He has had prior injuries to that side including a chest tube and severe pneumonia. He felt a crack pop it has been bothering him all week. He was unable to sleep last night pain seems to be getting progressively worse he is short of breath but nothing significant. He is now here for evaluation and care. He believes he has multiple fractures he can feel it on the left flank anterior area of his chest. Also he hurt his knee and has some pain but he is ambulating without any difficulty he is now here for evaluation and care. He has been taking Tylenol and Motrin for pain which does not seem to be working. Tetanus within 5 Years?: No Allergies: Coded Allergies: No Known Allergies (Unverified , 05/20/19) Active Prescriptions See Medication Reconciliation Form. Medication Reconciliation Scheduled Amlodipine Besylate (Amlodipine Besylate), 1 TAB PO DAILY, (Reported) Bupropion HCl (Bupropion HCl Sr), 1 TABLET PO DAILY, (Reported) Carvedilol* (Coreg*), 1 TABLET PO BID, (Reported) Clindamycin HCL* (Clindamycin HCL*), 1 CAP PO Q6H Fluticasone/Umeclidin/Vilanter (Trelegy Ellipta 100-62.5-25), 1 PUFFS INH DAILY, (Reported) Losartan Potassium (Losartan Potassium), 1 TAB PO HS, (Reported) Omeprazole (Omeprazole), 1 TAB PO DAILY, (Reported) Rosuvastatin Calcium (Rosuvastatin Calcium), 1 TAB PO DAILY, (Reported) Scheduled PRN Albuterol Sulfate (Proair Digihaler), 2 PUFF INH Q6H PRN for SOB or wheezing, (Reported) Hydrocodone Bit/Acetaminophen (Hydrocodone-Apap 10-325 Tablet), 1 TAB PO HS PRN for pain Ibuprofen (Ibuprofen), 1 TAB PO BID PRN for pain, (Reported) Past Medical History Past Medical History: Asthma, COPD, Pneumonia Past Surgical History: orthopedic surgeries Patient History: FH: arthritis FATHER, , Age: 80, Cause: Kidney failure FH: lupus MOTHER, , Age: 69, Cause: Clotting disorder FH: myocardial infarction MOTHER, , Age: 69, Cause: Clotting disorder Maternal grandfather Smoking Status: Never smoker Alcohol Use: Occasionally Lives with: Spouse Review of Systems All Other Systems at this time: Reviewed and Negative Physical Exam Vital Signs: RN Vital Signs have been reviewed: Yes, Temperature: 97.9, Source: Temporal, Heart Rate: 68, Respiratory Rate: 18, BP: 185/87, Pulse Oximetry: 98, Weight: 109.090 Oxygen Flow Rate: 0 Physical Exam General: The patient is well developed, well nourished, nontoxic appearing and is in mild acute distress. Skin: [place], warm and dry with no rashes. HEENT: Head was normocephalic and atraumatic. Eyes - pupils equal, round, reactive to light and accommodation. Extraocular movements were intact. Conjunctivae were nonicteric. The mouth with moist mucous membranes. Neck: Supple and nontender. There was no jugular venous distention, Chest: Clear to auscultation bilaterally without wheezes, rales or rhonchi. No accessory muscle use. Positive left anterior wall pain to percussion. No ecchymosis. Short shallow breath sounds Heart: Rate regular and rhythmic. S1, S2. No murmurs. Palpation of the chest wall produces pain to the left anterior lateral chest wall. No rubs or thrills. Abdomen: Soft, nontender and nondistended. Positive bowel sounds. No guarding or rebound. No hepatosplenomegaly or palpable masses. Extremities: No cyanosis, clubbing or edema. The patient moves all extremities. Neurologic: Motor sensory grossly intact Psychologic: The patient was oriented to person, place and time. The patient demonstrated appropriate judgement and insight. Progress Results/Orders Reviewed/noted all lab results: Yes Results/Orders Orders - MALCOM RAMOS MD, Unilat (02/10/25 07:20) Completed Orders - MALCOM RAMOS MD, Unilat (02/10/25 07:20) Hydrocodone/Apap 10/325 ([place] 10/325mg (02/10/25 07:50) Vital Signs 02/10/25 07:18 Temp 97.9 Pulse 68 Resp 18 B/P (MAP) 185/87 Pulse Ox 98 O2 Flow Rate 0 Re-Evaluation Re-Evaluation : Re-Evaluation: Improved Progress Patient was seen and examined. Patient was given reassurance. The patient was complaining of left anterior wall pain. X-ray showed no pneumothorax. Vital signs are reassuring.. Patient is satting at 98% room air. No decreased breath sounds with short shallow breaths. We discussed pulmonary toiletry taking deep breath stacking breaths to prevent pneumonia. Patient received pain medications reassurance and was discharged home. EKG/XRAY/CT/US/VASC/MRI Chest X-Ray : Interpreted By: radiologist, both Additional Comments Ordering Physician: MALCOM RAMOS MD Exam: RIBS,UNILAT [facility] EXAMINATION: DI RIBS,UNILAT INDICATION: RIB PAIN COMPARISON: None TECHNIQUE: Frontal view of the chest and 6 views of the left ribs history FINDINGS: No focal consolidation, pleural effusion or significant pneumothorax. Normal cardiomediastinal silhouette. Mildly displaced fracture of the left lateral 7th and 10th rib. IMPRESSION: No acute cardiopulmonary disease. Mildly displaced fracture of the left lateral 7th and 10th rib. Medical Decision Making Additional info obtained from: old records Differential Dx:Considerations: Include: Chest wall contusion, Flail chest, Myocardial contusion, Pneumothorax, Pulmonary contusion, Rib fracture, Renal contusion, Other Departure Disposition: 01 HOME / SELF CARE / HOMELESS Impression: Primary Impression: Ribs, multiple fractures Qualified Codes: S22.42XA - Multiple fractures of ribs, left side, initial encounter for closed fracture Condition: Stable Discharge Instructions: Rib Fracture Referrals: NO PRIMARY CARE PROVIDER (PCP) Prescriptions Hydrocodone Bit/Acetaminophen (Hydrocodone-Apap 10-325 Tablet) 10mg/325mg Tablet 1 TAB PO HS PRN for pain for 14 Days, #14 TAB Prov: MALCOM RAMOS MD 02/10/25 Education Educated: Patient Educated regarding: diagnosis, need for follow up Signature Scribe Signature: No scribed Attestation: The note accurately reflects work and decisions made by me.Malcom Ramos MD 02/10/25 07:52 MALCOM RAMOS MD Feb 10, 2025 07:53
[2025-02-10] MEDS ORDERED: HYDR-3973 PO (07:54)
--- NOTE | 2025-02-10 07:55 | RADIOLOGY REPORT ---
[facility] EXAMINATION: DI RIBS,UNILAT INDICATION: RIB PAIN COMPARISON: None TECHNIQUE: Frontal view of the chest and 6 views of the left ribs history FINDINGS: No focal consolidation, pleural effusion or significant pneumothorax. Normal cardiomediastinal silhou ette. Mildly displaced fracture of the left lateral 7th and 10th rib. IMPRESSION: No acute cardiopulmonary disease. Mildly displaced fracture of the left lateral 7th and 10th rib.
[2025-02-10] MEDS: HYDROcodone/acetaminophen 10/325mg tab PO ONE (08:17)
[2025-02-10 08:30] VITALS: BP 185/87; PULSE 68; RESP 18; O2SAT 98
== END 2025-02-10 08:30 | disposition home or self-care (01) ==
LOC: ER 07:16
DX: S22.42XA Multiple fractures of ribs, left side, initial encounter for closed fracture (principal); J44.9 Chronic obstructive pulmonary disease, unspecified; Z72.89 Other problems related to lifestyle; Z79.899 Other long term (current) drug therapy; W01.0XXA Fall on same level from slipping, tripping and stumbling without subsequent striking against object, initial encounter; Y93.89 Activity, other specified; Y92.89 Other specified places as the place of occurrence of the external cause; Y99.8 Other external cause status
CPT/HCPCS: 71100; 99284